=== PATIENT | male | born 1940 | race Caucasian/White ===

== ENCOUNTER → 2016-11-30 | Outpatient (CLI) | payer MEDICARE, BC ==
[2016-12-01 18:07] LABS: ABSOLUTE EOSINOPHILS # (AUTO) 0.8 10^3/uL (0.0-0.6); ABSOLUTE MONOCYTES (AUTO) 0.8 10^3/uL (0.1-1.4); BASOPHILS % (AUTO) 0.4 % (0-2); EOSINOPHILS % (AUTO) 12.1 % (0-6); HEMATOCRIT 34.2 % (37.9-51.0); HEMOGLOBIN 11.7 g/dL (13.5-17.0); HGB HCT DIFFERENCE 0.9; LYMPHOCYTES % (AUTO) 14.5 % (13-45); MEAN CORPUSCULAR HEMOGLOBIN 35.3 pg (27.0-33.4); MEAN CORPUSCULAR HGB CONC 34.2 g/dL (32.0-36.0); MEAN CORPUSCULAR VOLUME 103 fl (80-97); MONOCYTES % (AUTO) 11.8 % (3-13); RED BLOOD COUNT 3.32 10^6/uL (4.35-5.55); RED CELL DISTRIBUTION WIDTH 15.2 % (11.5-14.0); SEGMENTED NEUTROPHILS % (AUTO) 61.2 % (42-78); WHITE BLOOD COUNT 6.6 10^3/uL (4.0-10.5)
[2016-12-01 18:15] LABS: APPEARANCE,URINE CLEAR; BILIRUBIN,URINE NEGATIVE (NEGATIVE); GLUCOSE, URINE NEGATIVE (NEGATIVE); KETONES,URINE NEGATIVE (NEGATIVE); LEUKOCYTE ESTERASE,URINE TRACE (NEGATIVE); NITRITE,URINE NEGATIVE (NEGATIVE); PROTEIN,URINE 30 mg/dL (NEGATIVE); URINE SPECIFIC GRAVITY 1.017; UROBILINOGEN,URINE NEGATIVE mg/dL (<2.0)
[2016-12-01 18:30] LABS: ALANINE AMINOTRANSFERASE 39 U/L (21-72); ALBUMIN 3.7 g/dL (3.5-5.0); ALKALINE PHOSPHATASE 90 U/L (38-126); ANION GAP 10 (5-19); ASPARTATE AMINO TRANSFERASE 46 U/L (17-59); BILIRUBIN,DIRECT 0.4 mg/dL (0.0-0.4); BILIRUBIN,TOTAL 0.4 mg/dL (0.2-1.3); BLOOD UREA NITROGEN 13 mg/dL (7-20); CALCIUM 8.9 mg/dL (8.4-10.2); CARBON DIOXIDE 23 mmol/L (22-30); CHLORIDE 101 mmol/L (98-107); CREATININE RESULT 1.11 mg/dL (0.52-1.25); GLUCOSE 106 mg/dL (75-110); POTASSIUM 4.4 mmol/L (3.6-5.0); SODIUM 134.4 mmol/L (137-145); TOTAL PROTEIN 7.6 g/dL (6.3-8.2)
[2016-12-01 18:38] LABS: URINE CREATININE 114.1 mg/dL (22-328)
[2016-12-01 18:43] LABS: CREATININE 1.11 mg/dL (0.52-1.25)
[2016-12-04 08:40] LABS: COPROPORPHYRIN (CP) I URINE 18 ug/L (Undefined); COPROPORPHYRIN (CP) III URINE 13 ug/L (Undefined); HEPTACARBOXYL (7-CP) URINE 2 ug/L (Undefined); HEXACARBOXYL (6-CP) URINE <1 ug/L (Undefined); PENTACARBOXYL (5-CP) URINE <1 ug/L (Undefined); UROPORPHYRINS (UP) URINE 9 ug/L (Undefined)
== END ==
LOC: OD 17:26
PROVIDERS: ATTEND Physician Assistant
DX: L30.9 Dermatitis, unspecified (principal)
CPT/HCPCS: 36415; 80053; 81001; 82575; 82728; 83540; 84120; 85025; 86038

== ENCOUNTER 2019-02-20 13:15 | Inpatient (IN) | payer MEDICARE, BC ==
--- NOTE | 2019-02-20 13:50 | ER Document Report ---
ED Medical Screen (RME) - General Chief Complaint: Dizziness Stated Complaint: DIZZINESS,VOMITING Time Seen by Provider: 02/20/19 13:47 Primary Care Provider: IVELISSE JOHNSTON PA [Primary Care Provider] - Follow up as needed Mode of Arrival: Wheelchair Information source: Patient Notes: 78-year-old male presented to ED for difficulty breathing. He states he went to the doctor for this difficulty breathing and they did a EKG and when he was getting up to get ready to go home he got extremely dizzy almost fell if it would have if the person there had not caught him. He states he vomited after that they checked his blood pressure and it was low. His blood pressure is 90/60 in the triage area. states he was disoriented after this episode. I have greeted and performed a rapid initial assessment of this patient. A comprehensive ED assessment and evaluation of the patient, analysis of test results and completion of medical decision making process will be conducted by an additional ED providers. TRAVEL OUTSIDE OF THE [place] IN LAST 30 DAYS: No - Related Data Allergies/Adverse Reactions: No Known Allergies Allergy (Verified 09/21/14 10:54) Past Medical History - Past Medical History Cardiac Medical History: Reports: Hx Hypertension Musculoskeltal Medical History: Reports Hx Arthritis - Immunizations Hx Diphtheria, Pertussis, Tetanus Vaccination: Yes Physical Exam - Vital signs Vitals: Temp Pulse Resp BP Pulse Ox 98.2 F 72 16 90/60 L 98 02/20/19 13:33 02/20/19 13:33 02/20/19 13:33 02/20/19 13:33 02/20/19 13:33 Course - Vital Signs Vital signs: Temp Pulse Resp BP Pulse Ox 98.2 F 72 16 90/60 L 98 02/20/19 13:33 02/20/19 13:33 02/20/19 13:33 02/20/19 13:33 02/20/19 13:33 Doctor's Discharge - Discharge Referrals: IVELISSE JOHNSTON PA [Primary Care Provider] - Follow up as needed
[2019-02-20 14:32] LABS: ABSOLUTE EOSINOPHILS # (AUTO) 0.6 10^3/uL (0.0-0.6); ABSOLUTE LYMPHOCYTES (AUTO) 0.5 10^3/uL (0.5-4.7); ABSOLUTE MONOCYTES (AUTO) 0.4 10^3/uL (0.1-1.4); ABSOLUTE NEUT (AUTO) 3.2 10^3/uL (1.7-8.2); BASOPHILS % (AUTO) 0.5 % (0-2); EOSINOPHILS % (AUTO) 12.4 % (0-6); HEMOGLOBIN 9.3 g/dL (13.5-17.0); LYMPHOCYTES % (AUTO) 11.5 % (13-45); MEAN CORPUSCULAR HEMOGLOBIN 35.1 pg (27.0-33.4); MEAN CORPUSCULAR HGB CONC 33.4 g/dL (32.0-36.0); MEAN CORPUSCULAR VOLUME 105 fl (80-97); MONOCYTES % (AUTO) 8.5 % (3-13); PLATELET COUNT 109 10^3/uL (150-450); RED BLOOD COUNT 2.66 10^6/uL (4.35-5.55); SEGMENTED NEUTROPHILS % (AUTO) 67.1 % (42-78); TOTAL CELLS COUNTED % (AUTO) 100 %; WHITE BLOOD COUNT 4.8 10^3/uL (4.0-10.5)
--- NOTE | 2019-02-20 14:46 | RADIOLOGY REPORT (SQ) ---
EXAM DESCRIPTION: CHEST 2 VIEWS COMPLETED DATE/TIME: 02/20/2019 2:35 pm REASON FOR STUDY: syncope COMPARISON: 09/21/2014. EXAM PARAMETERS: NUMBER OF VIEWS: two views TECHNIQUE: Digital Frontal and Lateral radiographic views of the chest acquired. RADIATION DOSE: NA LIMITATIONS: none FINDINGS: LUNGS AND PLEURA: No opacities, masses or pneumothorax. No pleural effusion. MEDIASTINUM AND HILAR STRUCTURES: No masses or contour abnormalities. HEART AND VASCULAR STRUCTURES: Heart normal size. No evidence for failure. BONES: No acute findings. HARDWARE: Hardware in the cervical spine. OTHER: No other significant finding. IMPRESSION: NO ACUTE RADIOGRAPHIC FINDING IN THE CHEST. TECHNICAL DOCUMENTATION: JOB ID: [id number] [employer]- All Rights Reserved Reading location - IP/workstation name: [email or web address]
[2019-02-20 14:54] LABS: ALBUMIN 3.8 g/dL (3.5-5.0); ALKALINE PHOSPHATASE 167 U/L (38-126); ANION GAP 10 (5-19); ASPARTATE AMINO TRANSFERASE 86 U/L (17-59); BILIRUBIN,DIRECT 0.2 mg/dL (0.0-0.4); BILIRUBIN,TOTAL 0.4 mg/dL (0.2-1.3); BLOOD UREA NITROGEN 30 mg/dL (7-20); CALCIUM 9.4 mg/dL (8.4-10.2); CARBON DIOXIDE 22 mmol/L (22-30); CHLORIDE 108 mmol/L (98-107); CREATINE KINASE 110 U/L (55-170); GLUCOSE 118 mg/dL (75-110); POTASSIUM 4.4 mmol/L (3.6-5.0); TOTAL PROTEIN 8.4 g/dL (6.3-8.2)
[2019-02-20 15:06] LABS: CREATINE KINASE MB 1.1 ng/mL (<4.55)
[2019-02-20 15:13] LABS: TROPONIN I 0.045 ng/mL
[2019-02-20 16:45] LABS: APPEARANCE,URINE SLIGHTLY-CLOUDY; BILIRUBIN,URINE NEGATIVE (NEGATIVE); COLOR,URINE AMBER; GLUCOSE, URINE NEGATIVE (NEGATIVE); KETONES,URINE TRACE mg/dL (NEGATIVE); LEUKOCYTE ESTERASE,URINE NEGATIVE (NEGATIVE); NITRITE,URINE NEGATIVE (NEGATIVE); PROTEIN,URINE NEGATIVE (NEGATIVE); UROBILINOGEN,URINE NEGATIVE mg/dL (<2.0)
--- NOTE | 2019-02-20 16:55 | EKG REPORT ---
SEVERITY:- ABNORMAL ECG - PACEMAKER SPIKES OR ARTIFACTS SINUS RHYTHM FIRST DEGREE AV BLOCK : Confirmed by: Myriam Franklin MD 20-Feb-2019 16:54:12
[2019-02-20] MEDS ORDERED: NORMAL SALINE 1000 ML 500 ML IV ONE (17:25)
[2019-02-20] MEDS ORDERED: FAMOTIDINE INJ/PF 20 MG/2 ML SDV IV ONE (17:54)
[2019-02-20] MEDS ORDERED: PANTOPRAZOLE SODIUM 40 MG VIAL IV ONE (17:55)
[2019-02-20] MEDS ORDERED: SUCRALFATE 1 GM TABLET PO ONE (17:56)
[2019-02-20] MEDS ORDERED: PANTOPRAZOLE SODIUM 40 MG VIAL IV PRN (17:56)
[2019-02-20 18:41] LABS: INTERNATIONAL RATION (INR) 1.01; PROTHROMBIN TIME 13.3 SEC (11.4-15.4)
--- NOTE | 2019-02-20 18:42 | ER Document Report ---
ED General - General Chief Complaint: Dizziness Stated Complaint: DIZZINESS,VOMITING Time Seen by Provider: 02/20/19 13:47 Primary Care Provider: IVELISSE JOHNSTON PA [Primary Care Provider] - Follow up as needed Mode of Arrival: Wheelchair Information source: Patient, Relative TRAVEL OUTSIDE OF THE [place] IN LAST 30 DAYS: No - HPI Notes: 78-year-old male presented to ED for difficulty breathing. He states he went to the doctor for this difficulty breathing and they did a EKG and when he was getting up to get ready to go home he got extremely dizzy almost fell if it would have if the person there had not caught him. He states he vomited after that they checked his blood pressure and it was low. His blood pressure is 9 0/60 in the triage area. states he was disoriented after this episode briefly, but quickly was acting like his normal self thereafter. There is no focal unilateral motor or sensory deficit. The patient admits to feeling lightheaded over the course the past week. He does note having somewhat dark- colored bowel movements. Patient denies any chest pain, abdominal pain, fever, constipation, significant diarrhea, bright red blood per rectum, fever, chills. Patient does report urinary frequency with sensation of incomplete voiding. patient is on Flomax. No prior history of GI bleeds. Patient does have a history of gout, hypertension, rheumatoid arthritis and previous neck surgery. Social history non-smoker, rare alcohol use, not to exceed 1 drink per day. Regular practitioner Dr. August with [facility]. Medications include Lexapro, folic acid, Plavix, Flomax, methotrexate, losartan, allopurinol, 2 [place], Singulair, amlodipine, leflunomide - Related Data Allergies/Adverse Reactions: No Known Allergies Allergy (Verified 09/21/14 10:54) Past Medical History - General Information source: Patient - Social History Smoking Status: Never Smoker Frequency of alcohol use: None Drug Abuse: None Lives with: Family Family History: Reviewed & Not Pertinent Patient has suicidal ideation: No Patient has homicidal ideation: No - Past Medical History Cardiac Medical History: Reports: Hx Hypertension Musculoskeletal Medical History: Reports Hx Arthritis - Immunizations Hx Diphtheria, Pertussis, Tetanus Vaccination: Yes Review of Systems - Review of Systems -: Yes All other systems reviewed and negative Physical Exam - Vital signs Vitals: Temp Pulse Resp BP Pulse Ox 98.2 F 72 16 90/60 L 98 02/20/19 13:33 02/20/19 13:33 02/20/19 13:33 02/20/19 13:33 02/20/19 13:33 - Notes Notes: PHYSICAL EXAMINATION: GENERAL: Well-appearing, well-nourished and in no acute distress. HEAD: Atraumatic, normocephalic. EYES: Pupils equal round and reactive to light, extraocular movements intact, sclera anicteric, conjunctiva are normal. ENT: Nares patent, oropharynx clear without exudates. Slightly dry mucous membranes. NECK: Normal range of motion, supple without lymphadenopathy LUNGS: Breath sounds clear to auscultation bilaterally and equal. No wheezes rales or rhonchi. HEART: Regular rate and rhythm with 4/6 holosystolic ejection murmur best auscultated over the apex. ABDOMEN: Soft, nontender, nondistended abdomen. No guarding, no rebound. No masses appreciated. Rectal exam shows flash heme positive with a slightly dark bowel movement specimen. Prostate firm but nontender and without nodularity. Musculoskeletal: Normal range of motion, no pitting or edema. No cyanosis. NEUROLOGICAL: Cranial nerves grossly intact. Normal speech, normal gait. Normal sensory, motor exams. No focal deficits. PSYCH: Normal mood, normal affect. SKIN: Warm, Dry, normal turgor, no rashes or lesions noted. Course - Re-evaluation Re-evalutation: 02/20/19 18:42 Discussion was undertaken with the patient regarding possible transfusion, and the patient was in agreement if he would need one. Initial hemoglobin was 9.3, where is the patient's usual hemoglobin ranges from 11.7-15.3. White blood cell count somewhat low at 4.8 and platelet count was 109. Patient had a BUN of 30 and a creatinine of 1.6, which patient had a prior creatinine of 1.49 in the past but otherwise has more normal creatinine levels. Patient was given IV Pepcid and p.o. Carafate and Protonix bolus with a Protonix drip. Patient was given normal saline 500 cc. Blood pressure initially was 90/60 and a repeat blood pressure was 92/50. After IV fluids, the patient had no further hypotension noted. O2 sat remained stable and chest x-ray was clear. Patient's dyspnea appears secondary to his hypotension from his GI blood loss. Troponin mildly elevated at 0.045, but patient denied ever having any chest pain. Repeat troponin improved at 0.035. 02/20/19 18:52 Discussion was undertaken with the patient and family and they were in agreement with the patient being admitted for further evaluation and care. Discussion was undertaken with Dr. Holbrook who agreed to admit the patient for further care and management. No evidence for urinary retention as a post void residual was only 81. The patient did have mild ketosis with Hyaline casts in his urine consistent with dehydration. The patient states he has been drinking less fluids due to his urinary frequency recently. 02/20/19 19:34 - Vital Signs Vital signs: Temp Pulse Resp BP Pulse Ox 97.8 F 71 18 146/65 H 100 02/20/19 19:05 02/20/19 14:10 02/20/19 19:05 02/20/19 19:05 02/20/19 19:05 - Laboratory Result Diagrams: 02/20/19 14:20 02/20/19 14:20 Laboratory results interpreted by me: 02/20/19 02/20/19 02/20/19 14:20 14:20 14:20 RBC 2.66 L Hgb 9.3 L Hct 28.0 L MCV 105 H MCH 35.1 H RDW 15.0 H Plt Count 109 L Lymph % (Auto) 11.5 L Eos % (Auto) 12.4 H Chloride 108 H BUN 30 H Creatinine 1.60 H Est GFR ( Amer) 51 L Est GFR (MDRD) Non-Af 42 L Glucose 118 H AST 86 H Alkaline Phosphatase 167 H Total Protein 8.4 H Urine Ketones TRACE H Urine Ascorbic Acid 40 H - EKG Interpretation by Me EKG shows normal: Sinus rhythm Additional EKG results interpreted by me: 02/20/19 19:36 EKG is interpreted by id showed sinus rhythm heart rate of 67 with borderline first-degree AV block noted. There is no gross evidence for acute HI or ischemia noted. No old EKG available for comparison. Critical Care Note - Critical Care Note Total time excluding time spent on procedures (mins): 43 Discharge - Discharge Clinical Impression: Thrombocytopenia, Acute anemia, Renal insufficiency, Near syncope, Dehydration GI bleed Qualifiers: GI bleed type/associated pathology: unspecified gastrointestinal hemorrhage type Qualified Code(s): K92.2 - Gastrointestinal hemorrhage, unspecified Hypotension Qualifiers: Hypotension type: hypotension due to hypovolemia Qualified Code(s): I95.89 - Other hypotension Disposition: ADMITTED INPATIENT Admitting Provider: Yusef (Hospitalist) Referrals: IVELISSE JOHNSTON PA [Primary Care Provider] - Follow up as needed
[2019-02-20] MEDS ORDERED: MAG HYDROX/AL HYDROX/SIMETH SUSP 30 ML UDCUP PO PRN (20:14)
[2019-02-20] MEDS ORDERED: MAGNESIUM HYDROXIDE SUSP 30 ML UDCUP PO PRN (20:14)
[2019-02-20] MEDS ORDERED: NALBUPHINE HCL INJ 10 MG/1 ML AMPULE IV PRN (20:21)
[2019-02-20] MEDS ORDERED: ACETAMINOPHEN 650 MG SUPP.RECT PR PRN (20:21)
[2019-02-20] MEDS ORDERED: PROMETHAZINE HCL INJ 25 MG/1 ML VIAL IV PRN (20:24)
[2019-02-20 21:31] LABS: FREE T3 2.82 pg/mL (2.77-5.27); FREE T4 (FREE THYROXINE) 0.85 ng/dL (0.78-2.19)
[2019-02-20 21:45] LABS: THYROID STIMULATING HORMONE 6.03 uIU/mL (0.47-4.68)
[2019-02-20] MEDS: SUCRALFATE 1 GM TABLET PO SCH (22:26)
[2019-02-20] MEDS: PANTOPRAZOLE SODIUM 40 MG VIAL IV SCH (22:26)
[2019-02-20] MEDS: ACETAMINOPHEN 325 MG TABLET PO PRN (23:55)
[2019-02-20] MEDS: RINGERS SOLUTION,LACTATED 1,000 ML IV PRN (23:59)
[2019-02-21 01:30] LABS: CREATINE KINASE MB 1.04 ng/mL (<4.55); TROPONIN I 0.05 ng/mL
--- NOTE | 2019-02-21 03:10 | PDOC H&P ---
History of Present Illness Admission Date/PCP: 02/20/2019 19:37 WINSTON ENGEL Patient complains of: Dyspnea History of Present Illness: MARQUITA GARCIA is a 78 year old male who presented to the emergency room from his primary care provider's office where he had been noted to be hypotensive on an evaluation for a one-week history of dyspnea. Patient admits gradually worsening dyspnea over the last week becoming moderate to severe resulting in his visit to his doctor today. He admits that his dyspnea worsens with any exertion and has been associated with lightheadedness with standing or walking. He also acknowledges the accompanying symptoms of dark-colored bowel movements and decreased oral intake. He denies other associated or accompanying signs and symptoms. He denies prior similar episodes and has not identified any additional aggravating or ameliorating factors for his dyspnea. In the emergency room he was found to have postural hypotension and was noted to have a hemoglobin of 9.3 with a Hemoccult positive stool. His BUN was 30 with a creatinine of 1.6. He was subsequently admitted to the hospital for further evaluation treatment. Past Medical History Cardiac Medical History: Reports: Hypertension Denies: Coronary Artery Disease, Hyperlipidema Pulmonary Medical History: Denies: Asthma, Chronic Obstructive Pulmonary Disease (COPD) EENT Medical History: Reports: Nose - Allergic rhinitis Denies: Cataracts, Ears - Hearing aids Neurological Medical History: Denies: Hemorrhagic CVA, Ischemic CVA, Seizures Endocrine Medical History: Denies: Diabetes Mellitus Type 1, Diabetes Mellitus Type 2, Hyperthyroidism, Hypothyroidism, Obesity Renal/ Medical History: Reports: Other - Benign prostatic hyperplasia Denies: Chronic Kidney Disease, Nephrolithiasis Malignancy Medical History: Reports: None GI Medical History: Denies: Cirrhosis, Crohn's Disease, Gastroesophageal Reflux Disease, Hepatitis, Peptic Ulcer Disease, Ulcerative Colitis Musculoskeltal Medical History: Reports: Arthritis - Rheumatoid arthritis, Gout Skin Medical History: Denies: Eczema, Psoriasis Psychiatric Medical History: Reports: Depression Denies: Alcohol Dependency, Substance Abuse, Tobacco Dependency Traumatic Medical History: Reports: None Hematology: Reports: Anemia Denies: Bleeding Tendencies Infectious Medical History: Reports: None Past Surgical History Past Surgical History: Reports: Orthopedic Surgery - Neck surgery Social History Information Source: Patient Lives with: Spouse/Significant other Smoking Status: Never Smoker Electronic Cigarette use?: No Frequency of Alcohol Use: Rare Hx Recreational Drug Use: No Drugs: None Hx Prescription Drug Abuse: No - Advance Directive Resuscitation Status: Full Code Surrogate healthcare decision maker:: Jen Garcia Family History Family History: Arthritis, CAD, DM, Hypertension, Malignancy, Other - Peripheral vascular disease Parental Family History Reviewed: Yes Children Family History Reviewed: No Sibling(s) Family History Reviewed.: Yes Medication/Allergy Home Medications: Allopurinol [Zyloprim 300 mg Tablet] 300 mg PO DAILY 02/20/19 Amlodipine Besylate [Norvasc 5 mg Tablet] 5 mg PO DAILY 02/20/19 Azelastine HCl 1 spray NS BID 02/20/19 Clopidogrel Bisulfate [Plavix 75 mg Tablet] 75 mg PO DAILY 02/20/19 Escitalopram Oxalate [Lexapro 10 mg Tablet] 10 mg PO DAILY 02/20/19 Folic Acid [Folvite 1 mg Tablet] 1 mg PO DAILY 02/20/19 Leflunomide [Arava 20 mg Tablet] 20 mg PO DAILY 02/20/19 Losartan Potassium [Cozaar 50 mg Tablet] 50 mg PO DAILY 02/20/19 Methotrexate Sodium [Rheumatrex 2.5 mg Tablet] 5 mg PO FR@1000 02/20/19 Montelukast Sodium [Singulair 10 mg Tablet] 10 mg PO QPM 02/20/19 Multivitamin [One-A-Day Essential] 1 each PO DAILY 02/20/19 Tamsulosin HCl [Flomax] 0.4 mg PO BID 02/20/19 Turmeric Root Extract [Turmeric Curcumin] 500 mg PO DAILY 02/20/19 Allergies/Adverse Reactions: No Known Allergies Allergy (Verified 09/21/14 10:54) Review of Systems Constitutional: PRESENT: as per HPI, anorexia, other - Lightheadedness with standing. ABSENT: chills, fever(s) Eyes: ABSENT: visual disturbances, other - Eye pain Ears: ABSENT: hearing changes, other - Ear pain Nose, Mouth, and Throat: ABSENT: mouth pain, sore throat Cardiovascular: PRESENT: dyspnea on exertion. ABSENT: chest pain, palpitations Respiratory: PRESENT: dyspnea. ABSENT: cough Gastrointestinal: PRESENT: as per HPI, melena. ABSENT: abdominal pain, constipation, diarrhea, hematochezia, nausea, vomiting Genitourinary: ABSENT: dysuria, hematuria Musculoskeletal: ABSENT: joint swelling, muscle weakness Integumentary: ABSENT: pruritus, rash Neurological: PRESENT: as per HPI, other - Lightheadedness with standing or activity. ABSENT: confusion, convulsions, focal weakness, memory loss, syncope Psychiatric: ABSENT: anxiety, depression Endocrine: ABSENT: cold intolerance, heat intolerance Hematologic/Lymphatic: ABSENT: easy bleeding, easy bruising Allergic/Immunologic: PRESENT: seasonal rhinorrhea Physical Exam Vital Signs: Temp Pulse Resp BP Pulse Ox 97.8 F 71 18 146/65 H 100 02/20/19 19:05 02/20/19 14:10 02/20/19 19:05 02/20/19 19:05 02/20/19 19:05 Intake & Output 02/18/19 02/19/19 02/20/19 23:59 23:59 23:59 Intake Total 500 Balance 500 Weight 75.3 kg General appearance: PRESENT: no acute distress, cooperative Head exam: PRESENT: atraumatic, normocephalic Eye exam: PRESENT: conjunctiva pink. ABSENT: conjunctival injection, scleral icterus Ear exam: PRESENT: normal external ear exam. ABSENT: bleeding, drainage Mouth exam: PRESENT: dry mucosa, neck supple Neck exam: ABSENT: thyromegaly, tracheal deviation Respiratory exam: PRESENT: clear to auscultation yimi, symmetrical, unlabored Cardiovascular exam: PRESENT: RRR. ABSENT: clicks, gallop, rubs Pulses: PRESENT: normal radial pulses, normal dorsalis pedis pul Vascular exam: PRESENT: normal capillary refill. ABSENT: pallor GI/Abdominal exam: PRESENT: normal bowel sounds, soft. ABSENT: tenderness Rectal exam: PRESENT: deferred Extremities exam: ABSENT: joint swelling, pedal edema Musculoskeletal exam: ABSENT: deformity, dislocation Neurological exam: PRESENT: alert, oriented to person, oriented to place, oriented to time, oriented to situation, CN II-XII grossly intact. ABSENT: motor sensory deficit Psychiatric exam: PRESENT: appropriate affect, normal mood Skin exam: PRESENT: dry, intact, warm. ABSENT: jaundice, rash, urticaria Results Laboratory Results: 02/20/19 14:20 02/20/19 14:20 02/20/19 02/20/19 02/20/19 14:20 14:20 14:20 WBC 4.8 RBC 2.66 L Hgb 9.3 L Hct 28.0 L MCV 105 H MCH 35.1 H MCHC 33.4 RDW 15.0 H Plt Count 109 L Seg Neutrophils % 67.1 Sodium 140.3 Potassium 4.4 Chloride 108 H Carbon Dioxide 22 Anion Gap 10 BUN 30 H Creatinine 1.60 H Est GFR ( Amer) 51 L Glucose 118 H Calcium 9.4 Total Bilirubin 0.4 AST 86 H Alkaline Phosphatase 167 H Total Protein 8.4 H Albumin 3.8 Urine Color TRACIE Urine Appearance SLIGHTLY-CLOUDY Urine pH 5.0 Ur Specific Hart 1.020 Urine Protein NEGATIVE Urine Glucose (UA) NEGATIVE Urine Ketones TRACE H Urine Blood NEGATIVE Urine Nitrite NEGATIVE Ur Leukocyte Esterase NEGATIVE Urine WBC (Auto) 3 Urine RBC (Auto) 1 Blood Type Antibody Screen 02/20/19 18:20 WBC RBC Hgb Hct MCV MCH MCHC RDW Plt Count Seg Neutrophils % Sodium Potassium Chloride Carbon Dioxide Anion Gap BUN Creatinine Est GFR ( Amer) Glucose Calcium Total Bilirubin AST Alkaline Phosphatase Total Protein Albumin Urine Color Urine Appearance Urine pH Ur Specific Hart Urine Protein Urine Glucose (UA) Urine Ketones Urine Blood Urine Nitrite Ur Leukocyte Esterase Urine WBC (Auto) Urine RBC (Auto) Blood Type Cancelled Antibody Screen Cancelled 02/20/19 02/20/19 02/20/19 14:20 14:20 18:20 Creatine Kinase 110 CK-MB (CK-2) 1.10 Troponin I 0.045 0.035 Impressions: Chest X-Ray 02/20/19 13:51 IMPRESSION: NO ACUTE RADIOGRAPHIC FINDING IN THE CHEST. Assessment and Plan - Diagnosis (1) Upper gastrointestinal bleed Is this a current diagnosis for this admission?: Yes Plan: Patient will be admitted to [facility] and serial CBCs will be performed to evaluate his bleeding. A surgical consultation will be obtained for evaluation of his gastrointestinal hemorrhage. Transfusion will be provided if appropriate. Patient will be maintained on IV fluids and will receive Protonix 40 mg IV every 12 hours. He will be on a clear liquid diet and his vital signs including orthostatic vital signs will be monitored closely. (2) Postural hypotension Is this a current diagnosis for this admission?: Yes Plan: Patient will be treated with IV fluid resuscitation and careful and frequent monitoring of his vital signs. Falls precautions will be in place. (3) Acute kidney injury (nontraumatic) Is this a current diagnosis for this admission?: Yes Plan: Patient will be treated with IV fluids and his renal functions be monitored on a regular basis with metabolic profiles. (4) Anemia due to acute blood loss Is this a current diagnosis for this admission?: Yes Plan: Patient's hemoglobin will be monitored with serial CBCs and transfusion will be provided if required. (5) Thrombocytopenia Is this a current diagnosis for this admission?: Yes Plan: Patient's platelet count will be monitored with serial CBCs with intervention provided as required. (6) Rheumatoid arthritis Qualifiers: Rheumatoid arthritis location: unspecified site Rheumatoid factor presence: unspecified presence Qualified Code(s): M06.9 - Rheumatoid arthritis, unspecified Is this a current diagnosis for this admission?: Yes Plan: Patient's current therapeutic agents will be held until after resolution of his gastrointestinal hemorrhage. He will have available Nubain 5 to 10 mg IV every 3 hours on a as needed basis for pain control due to his rheumatoid arthritis. (7) Benign prostatic hyperplasia Qualifiers: Lower urinary tract symptom presence: unspecified whether lower urinary tract symptoms present Qualified Code(s): N40.0 - Benign prostatic hyperplasia without lower urinary tract symptoms Is this a current diagnosis for this admission?: Yes Plan: Patient will be continued on his usual therapeutic regiment using Flomax. His urine output will be monitored closely and intervention will be provided if needed. - Time Time Spent with patient: 25-34 minutes Medications reviewed and adjusted accordingly: Yes Anticipated discharge: Home - Inpatient Certification Based on my medical assessment, after consideration of the patient's citlalli rbidities, presenting symptoms, or acuity I expect that the services needed warrant INPATIENT care.: Yes I certify that my determination is in accordance with my understanding of Medicare's requirements for reasonable and necessary INPATIENT services [42 CFR 412.3e].: Yes Medical Necessity: Significant Comorbidiites Make Outpatient Treatment Too Risky, Need Close Monitoring Due to Risk of Patient Decompensation, Need For IV Fluids, Need For Continuous Telemetry Monitoring, Need for Surgery, Risk of Complication if Not Cared For in Hospital
[2019-02-21] MEDS: RINGERS SOLUTION,LACTATED 1,000 ML IV PRN ×3 (05:43→18:13)
[2019-02-21 06:54] LABS: HEMATOCRIT 20.9 % (37.9-51.0); MEAN CORPUSCULAR HEMOGLOBIN 35.4 pg (27.0-33.4); MEAN CORPUSCULAR VOLUME 104 fl (80-97); RED BLOOD COUNT 2.01 10^6/uL (4.35-5.55)
[2019-02-21 07:04] LABS: BLOOD UREA NITROGEN 23 mg/dL (7-20); CALCIUM 8.3 mg/dL (8.4-10.2); CARBON DIOXIDE 23 mmol/L (22-30); CHLORIDE 109 mmol/L (98-107); GLUCOSE 94 mg/dL (75-110); INTERNATIONAL RATION (INR) 1.08; POTASSIUM 4.1 mmol/L (3.6-5.0)
[2019-02-21 07:05] LABS: PARTIAL THROMBOPLASTIN TIME 30.7 SEC (23.5-35.8)
[2019-02-21 07:14] LABS: CREATINE KINASE MB 1.05 ng/mL (<4.55); TROPONIN I 0.047 ng/mL
[2019-02-21 07:18] LABS: ANION GAP 6 (5-19)
[2019-02-21 07:21] LABS: PLATELET COUNT 82 10^3/uL (150-450); WHITE BLOOD COUNT 2.7 10^3/uL (4.0-10.5)
[2019-02-21 07:24] LABS: HEMOGLOBIN 7.1 g/dL (13.5-17.0)
[2019-02-21] MEDS ORDERED: INFLUENZA QUAD (6MOS+) 2019-20 VAC 0.5 ML SYR IM ONE (08:00)
[2019-02-21] MEDS: SUCRALFATE 1 GM TABLET PO SCH ×4 (08:44→21:06)
[2019-02-21] MEDS: DOCUSATE SODIUM 100 MG/10 ML UDC PO SCH ×2 (09:26→17:45)
[2019-02-21] MEDS: ESCITALOPRAM OXALATE 10 MG TABLET PO SCH (09:27)
[2019-02-21] MEDS: TAMSULOSIN HCL 0.4 MG CAP.SR.24H PO SCH ×2 (09:27→17:45)
[2019-02-21] MEDS: PANTOPRAZOLE SODIUM 40 MG VIAL IV SCH ×2 (09:27→21:06)
[2019-02-21] MEDS: ALLOPURINOL 300 MG TABLET PO SCH (09:27)
[2019-02-21] MEDS: MULTIVITAMIN TABLET PO SCH (09:27)
[2019-02-21] MEDS: FOLIC ACID 1 MG TABLET PO SCH (09:27)
[2019-02-21 13:33] LABS: CREATINE KINASE MB 1.43 ng/mL (<4.55); TROPONIN I 0.038 ng/mL
--- NOTE | 2019-02-21 16:29 | PDOC PROGRESS REPORT ---
Subjective Progress Note for:: 02/21/19 Subjective:: This is a 78-year-old male who presented with a few week history of melanotic stools, lightheadedness and shortness of breath. He was found to be anemic and was found to have a positive FOBT. He was admitted for likely upper GI bleed. This morning, patient appears comfortable. He denies abdominal pain. He does report that he takes a lot of Aleve at home for his joint pains. Hemoglobin dropped down to 7.1. Will order 2 units of packed RBC. Surgical has been consulted for EGD. Reason For Visit: ACUTE UPPER GI BLEEDING,POSTURAL HYPOTENSION, Physical Exam Vital Signs: Temp Pulse Resp BP Pulse Ox 97.3 F 63 18 154/62 H 98 02/21/19 15:48 02/21/19 15:48 02/21/19 15:48 02/21/19 15:48 02/21/19 15:48 Intake & Output 02/20/19 02/21/19 02/22/19 06:59 06:59 06:59 Intake Total 1457 1449 Output Total 375 Balance 1082 1449 Weight 168 lb 3.403 oz 168 lb 3.403 oz General appearance: PRESENT: no acute distress, well-developed, well-nourished Head exam: PRESENT: atraumatic, normocephalic Eye exam: PRESENT: conjunctiva pale, EOMI, PERRLA. ABSENT: scleral icterus Ear exam: PRESENT: normal external ear exam Mouth exam: PRESENT: moist, tongue midline Neck exam: ABSENT: carotid bruit, JVD, lymphadenopathy, thyromegaly Respiratory exam: PRESENT: clear to auscultation yimi. ABSENT: rales, rhonchi, wheezes Cardiovascular exam: PRESENT: RRR. ABSENT: diastolic murmur, rubs, systolic murmur Pulses: PRESENT: normal dorsalis pedis pul GI/Abdominal exam: PRESENT: normal bowel sounds, soft. ABSENT: distended, guarding, mass, organolmegaly, rebound, tenderness Rectal exam: PRESENT: deferred Extremities exam: PRESENT: full ROM. ABSENT: calf tenderness, clubbing, pedal edema Neurological exam: PRESENT: alert, awake, oriented to person, oriented to place, oriented to time, oriented to situation, CN II-XII grossly intact. ABSENT: motor sensory deficit Results Laboratory Results: 02/21/19 06:15 02/21/19 06:15 02/20/19 02/20/19 02/20/19 14:20 14:20 18:20 WBC RBC Hgb Hct MCV MCH MCHC RDW Plt Count Sodium Potassium Chloride Carbon Dioxide Anion Gap BUN Creatinine Est GFR ( Amer) Glucose Calcium Magnesium TSH 6.03 H Free T4 0.85 Free T3 pg/mL 2.82 Urine Color TRACIE Urine Appearance SLIGHTLY-CLOUDY Urine pH 5.0 Ur Specific [place] 1.020 Urine Protein NEGATIVE Urine Glucose (UA) NEGATIVE Urine Ketones TRACE H Urine Blood NEGATIVE Urine Nitrite NEGATIVE Ur Leukocyte Esterase NEGATIVE Urine WBC (Auto) 3 Urine RBC (Auto) 1 Blood Type Cancelled Antibody Screen Cancelled 02/20/19 02/21/19 02/21/19 19:04 06:15 06:15 WBC 2.7 L D RBC 2.01 L Hgb 7.1 L D Hct 20.9 L MCV 104 H MCH 35.4 H MCHC 34.0 RDW 15.0 H Plt Count 82 L Sodium 137.7 Potassium 4.1 Chloride 109 H Carbon Dioxide 23 Anion Gap 6 BUN 23 H Creatinine 1.31 H Est GFR ( Amer) > 60 Glucose 94 Calcium 8.3 L Magnesium 1.9 TSH Free T4 Free T3 pg/mL Urine Color Urine Appearance Urine pH Ur Specific [place] Urine Protein Urine Glucose (UA) Urine Ketones Urine Blood Urine Nitrite Ur Leukocyte Esterase Urine WBC (Auto) Urine RBC (Auto) Blood Type A POSITIVE Antibody Screen NEGATIVE 02/20/19 02/20/19 02/20/19 14:20 14:20 18:20 Creatine Kinase 110 CK-MB (CK-2) 1.10 Troponin I 0.045 0.035 02/20/19 02/20/19 02/21/19 18:20 18:20 00:39 Creatine Kinase 98 CK-MB (CK-2) 0.88 1.04 Troponin I Cancelled 0.050 02/21/19 02/21/19 02/21/19 00:39 06:15 06:15 Creatine Kinase 98 108 CK-MB (CK-2) 1.05 Troponin I 0.047 02/21/19 02/21/19 12:46 12:46 Creatine Kinase 126 CK-MB (CK-2) 1.43 Troponin I 0.038 Impressions: Chest X-Ray 02/20/19 13:51 IMPRESSION: NO ACUTE RADIOGRAPHIC FINDING IN THE CHEST. Assessment and Plan - Diagnosis (1) Upper gastrointestinal bleed Is this a current diagnosis for this admission?: Yes Plan: Hemoglobin dropped down to 7.1. Will order 2 units of packed RBC. Surgical has been consulted for EGD. Continue IV Protonix. (2) Anemia due to acute blood loss Is this a current diagnosis for this admission?: Yes Plan: As per #1. (3) Acute kidney injury (nontraumatic) Is this a current diagnosis for this admission?: Yes Plan: Creatinine has improved down to 1.3 from 1.6. Likely a combination of prerenal and ATN from hypotension. continue IV fluids. - Time Time Spent with patient: 25-34 minutes
--- NOTE | 2019-02-21 16:50 | PDOC CONSULTATION ---
Consultation Consult Date: 02/21/19 Provider Consulted: JUAN TRIANA Consult reason:: Upper endoscopy History of Present Illness Admission Date/PCP: 02/20/19 20:18 WINSTON ENGEL History of Present Illness: MARQUITA ALEXIS is a 78 year old male who has been taking Aleve about 2 tabs every other day for the past years for back pains and joint pains attributed to osteoarthritis. He he has been noticing dark stools for the past week. While at the doctor's office the other day patient almost passed out and then subsequently brought to ED were hemoglobin was noted to be 9.3. He was also on Plavix supposedly for cardiac reasons and this apparently was stopped about 2 days ago. Today repeat hemoglobin was 7.1 and being transfused packed red blood cells. He denies any abdominal pains or nausea or vomiting. He denies any bright red stools. Denies any history of gastric or duodenal ulcers in the past. Past Medical History Cardiac Medical History: Reports: Hypertension Denies: Coronary Artery Disease, Hyperlipidema Pulmonary Medical History: Denies: Asthma, Chronic Obstructive Pulmonary Disease (COPD) EENT Medical History: Reports: Nose - Allergic rhinitis Denies: Cataracts, Ears - Hearing aids Neurological Medical History: Denies: Hemorrhagic CVA, Ischemic CVA, Seizures Endocrine Medical History: Denies: Diabetes Mellitus Type 1, Diabetes Mellitus Type 2, Hyperthyroidism, Hypothyroidism, Obesity Renal/ Medical History: Reports: Other - Benign prostatic hyperplasia Denies: Chronic Kidney Disease, Nephrolithiasis Malignancy Medical History: Reports: None GI Medical History: Denies: Cirrhosis, Crohn's Disease, Gastroesophageal Reflux Disease, Hepatitis, Peptic Ulcer Disease, Ulcerative Colitis Musculoskeltal Medical History: Reports: Arthritis - Rheumatoid arthritis, Gout Skin Medical History: Denies: Eczema, Psoriasis Psychiatric Medical History: Reports: Depression Denies: Alcohol Dependency, Substance Abuse, Tobacco Dependency Traumatic Medical History: Reports: None Hematology: Reports: Anemia Denies: Bleeding Tendencies Infectious Medical History: Reports: None Past Surgical History Past Surgical History: Reports: Orthopedic Surgery - Neck surgery Social History Lives with: Spouse/Significant other Smoking Status: Never Smoker Electronic Cigarette use?: No Frequency of Alcohol Use: Rare Hx Recreational Drug Use: No Drugs: None Hx Prescription Drug Abuse: No - Advance Directive Resuscitation Status: Full Code Family History Family History: Arthritis, CAD, DM, Hypertension, Malignancy, Other - Peripheral vascular disease Parental Family History Reviewed: Yes Children Family History Reviewed: No Sibling(s) Family History Reviewed.: No Medication/Allergy Home Medications: Allopurinol [Zyloprim 300 mg Tablet] 300 mg PO DAILY 02/20/19 Amlodipine Besylate [Norvasc 5 mg Tablet] 5 mg PO DAILY 02/20/19 Azelastine HCl 1 spray NS BID 02/20/19 Clopidogrel Bisulfate [Plavix 75 mg Tablet] 75 mg PO DAILY 02/20/19 Escitalopram Oxalate [Lexapro 10 mg Tablet] 10 mg PO DAILY 02/20/19 Folic Acid [Folvite 1 mg Tablet] 1 mg PO DAILY 02/20/19 Leflunomide [Arava 20 mg Tablet] 20 mg PO DAILY 02/20/19 Losartan Potassium [Cozaar 50 mg Tablet] 50 mg PO DAILY 02/20/19 Methotrexate Sodium [Rheumatrex 2.5 mg Tablet] 5 mg PO FR@1000 02/20/19 Montelukast Sodium [Singulair 10 mg Tablet] 10 mg PO QPM 02/20/19 Multivitamin [One-A-Day Essential] 1 each PO DAILY 02/20/19 Tamsulosin HCl [Flomax] 0.4 mg PO BID 02/20/19 Turmeric Root Extract [Turmeric Curcumin] 500 mg PO DAILY 02/20/19 Allergies/Adverse Reactions: No Known Allergies Allergy (Verified 09/21/14 10:54) Review of Systems Constitutional: PRESENT: other - Denies fever no chills Gastrointestinal: PRESENT: as per HPI Physical Exam Vital Signs: Temp Pulse Resp BP Pulse Ox 97.3 F 63 18 154/62 H 98 02/21/19 15:48 02/21/19 15:48 02/21/19 15:48 02/21/19 15:48 02/21/19 15:48 Intake & Output 02/20/19 02/21/19 02/22/19 06:59 06:59 06:59 Intake Total 1457 1449 Output Total 375 Balance 1082 1449 Weight 76.3 kg 76.3 kg General appearance: PRESENT: no acute distress Eye exam: PRESENT: conjunctiva pale Mouth exam: PRESENT: moist Neck exam: PRESENT: full ROM Respiratory exam: PRESENT: clear to auscultation yimi Cardiovascular exam: PRESENT: RRR Pulses: PRESENT: normal radial pulses Vascular exam: PRESENT: normal capillary refill GI/Abdominal exam: PRESENT: soft - Nontender Rectal exam: PRESENT: deferred Neurological exam: PRESENT: alert, oriented to person, oriented to place, oriented to time, oriented to situation Psychiatric exam: PRESENT: appropriate affect Skin exam: PRESENT: normal color, warm Results Laboratory Results: 02/21/19 06:15 02/21/19 06:15 02/20/19 02/20/19 02/20/19 14:20 14:20 18:20 WBC RBC Hgb Hct MCV MCH MCHC RDW Plt Count Sodium Potassium Chloride Carbon Dioxide Anion Gap BUN Creatinine Est GFR ( Amer) Glucose Calcium Magnesium TSH 6.03 H Free T4 0.85 Free T3 pg/mL 2.82 Urine Color TRACIE Urine Appearance SLIGHTLY-CLOUDY Urine pH 5.0 Ur Specific [place] 1.020 Urine Protein NEGATIVE Urine Glucose (UA) NEGATIVE Urine Ketones TRACE H Urine Blood NEGATIVE Urine Nitrite NEGATIVE Ur Leukocyte Esterase NEGATIVE Urine WBC (Auto) 3 Urine RBC (Auto) 1 Blood Type Cancelled Antibody Screen Cancelled 02/20/19 02/21/19 02/21/19 19:04 06:15 06:15 WBC 2.7 L D RBC 2.01 L Hgb 7.1 L D Hct 20.9 L MCV 104 H MCH 35.4 H MCHC 34.0 RDW 15.0 H Plt Count 82 L Sodium 137.7 Potassium 4.1 Chloride 109 H Carbon Dioxide 23 Anion Gap 6 BUN 23 H Creatinine 1.31 H Est GFR ( Amer) > 60 Glucose 94 Calcium 8.3 L Magnesium 1.9 TSH Free T4 Free T3 pg/mL Urine Color Urine Appearance Urine pH Ur Specific [place] Urine Protein Urine Glucose (UA) Urine Ketones Urine Blood Urine Nitrite Ur Leukocyte Esterase Urine WBC (Auto) Urine RBC (Auto) Blood Type A POSITIVE Antibody Screen NEGATIVE 02/20/19 02/20/19 02/20/19 14:20 14:20 18:20 Creatine Kinase 110 CK-MB (CK-2) 1.10 Troponin I 0.045 0.035 02/20/19 02/20/19 02/21/19 18:20 18:20 00:39 Creatine Kinase 98 CK-MB (CK-2) 0.88 1.04 Troponin I Cancelled 0.050 02/21/19 02/21/19 02/21/19 00:39 06:15 06:15 Creatine Kinase 98 108 CK-MB (CK-2) 1.05 Troponin I 0.047 02/21/19 02/21/19 12:46 12:46 Creatine Kinase 126 CK-MB (CK-2) 1.43 Troponin I 0.038 Impressions: Chest X-Ray 02/20/19 13:51 IMPRESSION: NO ACUTE RADIOGRAPHIC FINDING IN THE CHEST. Assessment & Plan - Diagnosis (1) Anemia due to acute blood loss Is this a current diagnosis for this admission?: Yes (2) Postural hypotension Is this a current diagnosis for this admission?: Yes (3) Upper gastrointestinal bleed Is this a current diagnosis for this admission?: Yes - Time Time Spent: 30 to 50 Minutes - Inpatient Certification Medical Necessity: Need Close Monitoring Due to Risk of Patient Decompensation, Need For IV Fluids - Plan Summary Plan Summary: Hold Aleve and Plavix Keep n.p.o. from midnight For possible EGD tomorrow. I'll ask to do the EGD
[2019-02-21] MEDS: MONTELUKAST SODIUM 10 MG TABLET PO SCH (17:45)
[2019-02-21 18:58] LABS: ABSOLUTE EOSINOPHILS # (AUTO) 0.6 10^3/uL (0.0-0.6); ABSOLUTE LYMPHOCYTES (AUTO) 0.6 10^3/uL (0.5-4.7); ABSOLUTE MONOCYTES (AUTO) 0.3 10^3/uL (0.1-1.4); ABSOLUTE NEUT (AUTO) 1.5 10^3/uL (1.7-8.2); BASOPHILS % (AUTO) 0.5 % (0-2); EOSINOPHILS % (AUTO) 19.6 % (0-6); HEMATOCRIT 27.8 % (37.9-51.0); LYMPHOCYTES % (AUTO) 20.1 % (13-45); MEAN CORPUSCULAR HEMOGLOBIN 33.2 pg (27.0-33.4); MEAN CORPUSCULAR HGB CONC 34.3 g/dL (32.0-36.0); MONOCYTES % (AUTO) 10.8 % (3-13); RED BLOOD COUNT 2.88 10^6/uL (4.35-5.55); RED CELL DISTRIBUTION WIDTH 18.7 % (11.5-14.0); TOTAL CELLS COUNTED % (AUTO) 100 %; WHITE BLOOD COUNT 3.1 10^3/uL (4.0-10.5)
[2019-02-21 19:25] LABS: HEMOGLOBIN 9.5 g/dL (13.5-17.0); MEAN CORPUSCULAR VOLUME 97 fl (80-97); PLATELET COUNT 74 10^3/uL (150-450)
[2019-02-22] MEDS: RINGERS SOLUTION,LACTATED 1,000 ML IV PRN (01:09)
[2019-02-22 07:08] LABS: HEMATOCRIT 27.9 % (37.9-51.0); HEMOGLOBIN 9.7 g/dL (13.5-17.0); MEAN CORPUSCULAR HEMOGLOBIN 33.4 pg (27.0-33.4); MEAN CORPUSCULAR HGB CONC 34.6 g/dL (32.0-36.0); MEAN CORPUSCULAR VOLUME 97 fl (80-97); RED BLOOD COUNT 2.89 10^6/uL (4.35-5.55); RED CELL DISTRIBUTION WIDTH 18.9 % (11.5-14.0); WHITE BLOOD COUNT 3.3 10^3/uL (4.0-10.5)
[2019-02-22 07:52] LABS: PLATELET COUNT 73 10^3/uL (150-450)
[2019-02-22] MEDS: SUCRALFATE 1 GM TABLET PO SCH ×4 (12:03→21:56)
[2019-02-22] MEDS: DOCUSATE SODIUM 100 MG/10 ML UDC PO SCH ×2 (12:03→18:33)
[2019-02-22] MEDS: ALLOPURINOL 300 MG TABLET PO SCH (12:07)
[2019-02-22] MEDS: TAMSULOSIN HCL 0.4 MG CAP.SR.24H PO SCH ×2 (12:07→18:33)
[2019-02-22] MEDS: PANTOPRAZOLE SODIUM 40 MG VIAL IV SCH ×2 (12:07→21:57)
[2019-02-22] MEDS: ESCITALOPRAM OXALATE 10 MG TABLET PO SCH (12:07)
[2019-02-22] MEDS: MULTIVITAMIN TABLET PO SCH (12:07)
[2019-02-22] MEDS: FOLIC ACID 1 MG TABLET PO SCH (12:07)
[2019-02-22] MEDS ORDERED: BISACODYL 5 MG TABEC PO ONE ×3 (13:00→18:37)
[2019-02-22] MEDS ORDERED: POLYETHYLENE GLYCOL 3350 POWDER 17 GM/1 PACKET PO ONE (13:30)
[2019-02-22] MEDS ORDERED: POLYETHYLENE GLYCOL 3350 POWDER 17 GM/1 PACKET ONE ×2 (15:44→15:46)
--- NOTE | 2019-02-22 16:20 | PDOC PROGRESS REPORT ---
Subjective Progress Note for:: 02/22/19 Subjective:: This is a 78-year-old male who presented with a few week history of melanotic stools, lightheadedness and shortness of breath. He was found to be anemic and was found to have a positive FOBT. He was admitted for likely upper GI bleed. 02/21: This morning, patient appears comfortable. He denies abdominal pain. He does report that he takes a lot of Aleve at home for his joint pains. Hemoglobin dropped down to 7.1. Will order 2 units of packed RBC. Surgical has been consulted for EGD. 02/22: Patient reports he had an episode of black tarry stool overnight. He also complained of urinary frequency last night. Denies chest pain, shortness of breath or dizziness. Hemoglobin has improved and remained stable after transfusion. He is scheduled for an EGD and colonoscopy tomorrow by surgery. Reason For Visit: ACUTE UPPER GI BLEEDING,POSTURAL HYPOTENSION, Physical Exam Vital Signs: Temp Pulse Resp BP Pulse Ox 97.7 F 66 18 173/72 H 96 02/22/19 08:12 02/22/19 08:12 02/22/19 08:12 02/22/19 08:12 02/22/19 08:12 Intake & Output 02/21/19 02/22/19 02/23/19 06:59 06:59 06:59 Intake Total 1457 5199 360 Output Total 375 700 Balance 1082 4499 360 Weight 168 lb 3.403 oz 167 lb 15.876 oz General appearance: PRESENT: no acute distress, well-developed, well-nourished Head exam: PRESENT: atraumatic, normocephalic Eye exam: PRESENT: conjunctiva pink, EOMI, PERRLA. ABSENT: scleral icterus Ear exam: PRESENT: normal external ear exam Mouth exam: PRESENT: moist, tongue midline Neck exam: ABSENT: carotid bruit, JVD, lymphadenopathy, thyromegaly Respiratory exam: PRESENT: clear to auscultation yimi. ABSENT: rales, rhonchi, wheezes Cardiovascular exam: PRESENT: RRR. ABSENT: rubs Pulses: PRESENT: normal dorsalis pedis pul GI/Abdominal exam: PRESENT: normal bowel sounds, soft. ABSENT: distended, guarding, mass, organolmegaly, rebound, tenderness Rectal exam: PRESENT: deferred Neurological exam: PRESENT: alert, awake, oriented to person, oriented to place, oriented to time, oriented to situation, CN II-XII grossly intact. ABSENT: motor sensory deficit Results Laboratory Results: 02/22/19 06:23 02/21/19 06:15 02/21/19 02/22/19 18:45 06:23 WBC 3.1 L 3.3 L RBC 2.88 L 2.89 L Hgb 9.5 L D 9.7 L Hct 27.8 L 27.9 L MCV 97 D 97 MCH 33.2 33.4 MCHC 34.3 34.6 RDW 18.7 H 18.9 H Plt Count 74 L 73 L Seg Neutrophils % 49.0 02/20/19 02/20/19 02/20/19 14:20 14:20 18:20 Creatine Kinase 110 CK-MB (CK-2) 1.10 Troponin I 0.045 0.035 02/20/19 02/20/19 02/21/19 18:20 18:20 00:39 Creatine Kinase 98 CK-MB (CK-2) 0.88 1.04 Troponin I Cancelled 0.050 02/21/19 02/21/19 02/21/19 00:39 06:15 06:15 Creatine Kinase 98 108 CK-MB (CK-2) 1.05 Troponin I 0.047 02/21/19 02/21/19 12:46 12:46 Creatine Kinase 126 CK-MB (CK-2) 1.43 Troponin I 0.038 Impressions: Chest X-Ray 02/20/19 13:51 IMPRESSION: NO ACUTE RADIOGRAPHIC FINDING IN THE CHEST. Assessment and Plan - Diagnosis (1) Upper gastrointestinal bleed Is this a current diagnosis for this admission?: Yes Plan: 02/21: Hemoglobin dropped down to 7.1. Will order 2 units of packed RBC. Surgical has been consulted for EGD. Continue IV Protonix. 02/22: Hemoglobin has trended up and stabilized at 9.7. Surgery has scheduled patient for EGD: This could be tomorrow. (2) Anemia due to acute blood loss Is this a current diagnosis for this admission?: Yes Plan: As per #1. (3) Acute kidney injury (nontraumatic) Is this a current diagnosis for this admission?: Yes Plan: Improving with IV fluids. Likely a combination of prerenal and ATN from hypotension.
[2019-02-22] MEDS ORDERED: BISACODYL 5 MG TABEC PO SCH (18:00)
[2019-02-22] MEDS: MONTELUKAST SODIUM 10 MG TABLET PO SCH (18:33)
--- NOTE | 2019-02-22 19:28 | PDOC PROGRESS REPORT ---
Subjective Progress Note for:: 02/22/19 Subjective:: This is a 78-year-old male with symptomatic anemia and melena. The patient's last colonoscopy was in the . He reports orthostasis, fatigue, and malaise. He denies chest pain, shortness of breath, fevers, chills, nausea, or vomiting. He has recently had a melanotic stool. He denies abdominal pain Reason For Visit: ACUTE UPPER GI BLEEDING,POSTURAL HYPOTENSION, Physical Exam Vital Signs: Temp Pulse Resp BP Pulse Ox 97.7 F 63 18 173/72 H 96 02/22/19 08:12 02/22/19 14:00 02/22/19 08:12 02/22/19 08:12 02/22/19 08:12 Intake & Output 02/21/19 02/22/19 02/23/19 06:59 06:59 06:59 Intake Total 1457 5199 720 Output Total 375 700 Balance 1082 4499 720 Weight 76.3 kg 76.2 kg General appearance: PRESENT: no acute distress, cooperative Head exam: PRESENT: atraumatic, normocephalic Eye exam: PRESENT: EOMI, PERRLA. ABSENT: scleral icterus Mouth exam: PRESENT: moist, neck supple Neck exam: ABSENT: meningismus, tenderness, thyromegaly, tracheal deviation Respiratory exam: PRESENT: unlabored. ABSENT: chest wall tenderness, tachypnea, wheezes Pulses: PRESENT: normal radial pulses Vascular exam: PRESENT: pallor - Mild GI/Abdominal exam: PRESENT: soft. ABSENT: distended, tenderness Rectal exam: PRESENT: deferred Extremities exam: ABSENT: clubbing Musculoskeletal exam: ABSENT: deformity Neurological exam: PRESENT: alert, awake, oriented to person, oriented to place, oriented to time, oriented to situation, CN II-XII grossly intact Psychiatric exam: ABSENT: agitated, anxious, depressed Focused psych exam: ABSENT: delusional Skin exam: ABSENT: cyanosis, erythema, jaundice Results Laboratory Results: 02/22/19 06:23 02/21/19 06:15 02/21/19 02/22/19 18:45 06:23 WBC 3.1 L 3.3 L RBC 2.88 L 2.89 L Hgb 9.5 L D 9.7 L Hct 27.8 L 27.9 L MCV 97 D 97 MCH 33.2 33.4 MCHC 34.3 34.6 RDW 18.7 H 18.9 H Plt Count 74 L 73 L Seg Neutrophils % 49.0 02/20/19 02/20/19 02/20/19 14:20 14:20 18:20 Creatine Kinase 110 CK-MB (CK-2) 1.10 Troponin I 0.045 0.035 02/20/19 02/20/19 02/21/19 18:20 18:20 00:39 Creatine Kinase 98 CK-MB (CK-2) 0.88 1.04 Troponin I Cancelled 0.050 02/21/19 02/21/19 02/21/19 00:39 06:15 06:15 Creatine Kinase 98 108 CK-MB (CK-2) 1.05 Troponin I 0.047 02/21/19 02/21/19 12:46 12:46 Creatine Kinase 126 CK-MB (CK-2) 1.43 Troponin I 0.038 Impressions: Chest X-Ray 02/20/19 13:51 IMPRESSION: NO ACUTE RADIOGRAPHIC FINDING IN THE CHEST. Assessment & Plan - Diagnosis (1) Melena Is this a current diagnosis for this admission?: Yes (2) Anemia due to acute blood loss Is this a current diagnosis for this admission?: Yes - Time Time Spent with patient: Less than 15 minutes - Plan Summary Plan Summary: This is a 78-year-old male with melena and symptomatic anemia. The patient has not had a colonoscopy since the . Due to his symptomatic anemia and melena, his work-up should include colonoscopy and EGD. The patient has not had any hematochezia or hematemesis. I have discussed the plan with the patient at length. He is in agreement. Plan for bowel prep today. Plan for EGD and colonoscopy tomorrow. Continue with a PPI for now.
[2019-02-23] MEDS: RINGERS SOLUTION,LACTATED 1,000 ML IV PRN (05:36)
[2019-02-23 06:33] LABS: HEMATOCRIT 26.2 % (37.9-51.0); MEAN CORPUSCULAR HEMOGLOBIN 33.4 pg (27.0-33.4); MEAN CORPUSCULAR HGB CONC 34.2 g/dL (32.0-36.0); MEAN CORPUSCULAR VOLUME 98 fl (80-97); RED BLOOD COUNT 2.69 10^6/uL (4.35-5.55); RED CELL DISTRIBUTION WIDTH 18.4 % (11.5-14.0); WHITE BLOOD COUNT 3.3 10^3/uL (4.0-10.5)
[2019-02-23 06:46] LABS: ANION GAP 6 (5-19); BLOOD UREA NITROGEN 14 mg/dL (7-20); CALCIUM 8.3 mg/dL (8.4-10.2); CARBON DIOXIDE 24 mmol/L (22-30); CHLORIDE 109 mmol/L (98-107); GLUCOSE 85 mg/dL (75-110); POTASSIUM 3.6 mmol/L (3.6-5.0)
[2019-02-23 06:53] LABS: PLATELET COUNT 74 10^3/uL (150-450)
[2019-02-23] MEDS ORDERED: PROPOFOL INJ 200 MG/20 ML VIAL IV ONE ×2 (07:04→07:35)
--- NOTE | 2019-02-23 08:13 | PDOC PROGRESS REPORT ---
Subjective Subjective:: This is a 78-year-old male with symptomatic anemia and melena. The patient's last colonoscopy was in the . He reports orthostasis, fatigue, and malaise. He denies chest pain, shortness of breath, fevers, chills, nausea, or vomiting. He has recently had a melanotic stool. He denies abdominal pain. He has completed his bowel prep. He received 2 units of packed red blood cells yesterday. Reason For Visit: ACUTE UPPER GI BLEEDING,POSTURAL HYPOTENSION, Physical Exam Vital Signs: Temp Pulse Resp BP Pulse Ox 97.7 F 100 18 139/65 H 96 02/22/19 08:12 02/23/19 07:00 02/22/19 08:12 02/23/19 04:00 02/22/19 08:12 Intake & Output 02/22/19 02/23/19 02/24/19 06:59 06:59 06:59 Intake Total 5199 1720 Output Total 700 Balance 4499 1720 Weight 76.2 kg 74.8 kg Results Laboratory Results: 02/23/19 05:54 02/23/19 05:54 02/23/19 02/23/19 05:54 05:54 WBC 3.3 L RBC 2.69 L Hgb 9.0 L Hct 26.2 L MCV 98 H MCH 33.4 MCHC 34.2 RDW 18.4 H Plt Count 74 L Sodium 138.5 Potassium 3.6 Chloride 109 H Carbon Dioxide 24 Anion Gap 6 BUN 14 Creatinine 1.18 Est GFR ( Amer) > 60 Glucose 85 Calcium 8.3 L 02/20/19 02/20/19 02/20/19 14:20 14:20 18:20 Creatine Kinase 110 CK-MB (CK-2) 1.10 Troponin I 0.045 0.035 02/20/19 02/20/19 02/21/19 18:20 18:20 00:39 Creatine Kinase 98 CK-MB (CK-2) 0.88 1.04 Troponin I Cancelled 0.050 02/21/19 02/21/19 02/21/19 00:39 06:15 06:15 Creatine Kinase 98 108 CK-MB (CK-2) 1.05 Troponin I 0.047 02/21/19 02/21/19 12:46 12:46 Creatine Kinase 126 CK-MB (CK-2) 1.43 Troponin I 0.038 Impressions: Chest X-Ray 02/20/19 13:51 IMPRESSION: NO ACUTE RADIOGRAPHIC FINDING IN THE CHEST. Assessment & Plan - Diagnosis (1) Melena Is this a current diagnosis for this admission?: Yes (2) Anemia due to acute blood loss Is this a current diagnosis for this admission?: Yes - Time Time Spent with patient: Less than 15 minutes - Plan Summary Plan Summary: Plan for EGD and colonoscopy today for symptomatic anemia and melena. Risks/benefits discussed, informed consent obtained, and all questions answered.
--- NOTE | 2019-02-23 08:19 | Operative Report ---
Nonrecallable Operative Report DATE OF SURGERY: 02/23/19 PREOPERATIVE DIAGNOSIS: Symptomatic anemia and melena POSTOPERATIVE DIAGNOSIS: 1. Very mild gastritis, without signs of gastric ulceration. 2. Mild reflux esophagitis. 3. Internal hemorrhoids. OPERATION: 1. EGD with biopsy. 2. Colonoscopy to the cecum. SURGEON: MARIE MARQUEZ ANESTHESIA: LMAC TISSUE REMOVED OR ALTERED: 1. Antrum. 2. Distal esophagus COMPLICATIONS: None apparent ESTIMATED BLOOD LOSS: Minimal PROCEDURE: Procedure in detail: After informed consent was obtained, the patient was brought to the operating room and laid in the left lateral decubitus position. The endoscope was passed down the oropharynx, down the esophagus, and into the stomach. The stomach was insufflated with air. There is a very mild amount of gastritis present. There were no ulcerations. There was no old blood. There is no new blood. The scope was placed through the pylorus and into the first and second portions of the duodenum, which appeared completely normal. The scope was pulled back into the antrum, where biopsy was taken to rule out H. pylori infection. A retroflexion maneuver was performed, noting no significant hiatal hernia. The scope was pulled up into the distal esophagus, where a mild amount of reflux esophagitis was identified. The scope was then withdrawn up the remainder of the esophagus. The remainder of the esophagus was smooth in contour without masses, lesions, or other significant abnormalities. The scope was removed from the oropharynx, and this portion of the procedure was concluded. Attention was then turned to the colonoscopy. The endoscope was passed up the rectum, sigmoid colon, descending colon, across the transverse colon, down the ascending colon, and into the cecum. The ileocecal valve and appendiceal orifice were identified. The prep was very good. The scope was then withdrawn, circumferentially noting the mucosa. The scope was withdrawn through the ascending colon, transverse colon, descending colon, sigmoid colon, and into the rectum. Throughout the colon, there was old blood identified. There was no active bleeding. There were no masses, lesions, ulcerations, diverticula, or other obvious source of the patient's blood loss. A retroflexion maneuver was performed in the rectum noting small internal hemorrhoids. The scope was straightened, air was suctioned from the rectum, the scope was removed, and the procedure was concluded. All sponge, instrument, and needle counts were correct x2. Condition: Stable. Please note that throughout the examination, no obvious source of bleeding was identified. Further work-up per primary team.
--- NOTE | 2019-02-23 08:21 | Progress Note ---
Provider Note Provider Note: 78-year-old male status post EGD and colonoscopy for melena and symptomatic anemia. No obvious source of bleeding could be identified on either examination. I would recommend cessation of all NSAIDs. He should continue his PPI. If his anemia continues, further work-up with outpatient gastroenterology is warranted. Surgery will sign off at this time. Please renotify with any questions or concerns.
[2019-02-23] MEDS: SUCRALFATE 1 GM TABLET PO SCH ×4 (08:53→21:12)
[2019-02-23] MEDS: MULTIVITAMIN TABLET PO SCH (10:44)
[2019-02-23] MEDS: FOLIC ACID 1 MG TABLET PO SCH (10:44)
[2019-02-23] MEDS: ESCITALOPRAM OXALATE 10 MG TABLET PO SCH (10:44)
[2019-02-23] MEDS: TAMSULOSIN HCL 0.4 MG CAP.SR.24H PO SCH ×2 (10:44→17:57)
[2019-02-23] MEDS: PANTOPRAZOLE SODIUM 40 MG VIAL IV SCH ×2 (10:44→21:12)
[2019-02-23] MEDS: ALLOPURINOL 300 MG TABLET PO SCH (10:45)
[2019-02-23] MEDS: DOCUSATE SODIUM 100 MG/10 ML UDC PO SCH ×2 (10:45→17:58)
--- NOTE | 2019-02-23 14:17 | PDOC PROGRESS REPORT ---
Subjective Progress Note for:: 02/23/19 Subjective:: This is a 78-year-old male who presented with a few week history of melanotic stools, lightheadedness and shortness of breath. He was found to be anemic and was found to have a positive FOBT. He was admitted for likely upper GI bleed. 02/21: This morning, patient appears comfortable. He denies abdominal pain. He does report that he takes a lot of Aleve at home for his joint pains. Hemoglobin dropped down to 7.1. Will order 2 units of packed RBC. Surgicalist has been consulted for EGD. 02/22: Patient reports he had an episode of black tarry stool overnight. He also complained of urinary frequency last night. Denies chest pain, shortness of breath or dizziness. Hemoglobin has improved and remained stable after transfusion. He is scheduled for an EGD and colonoscopy tomorrow by surgery. 02/23: Patient still has an episode of melena overnight. He just got back from EGD and colonoscopy. No definite source of bleeding was identified. He does h ave a systolic murmur suspicious for aortic stenosis. Echocardiogram done and pending report. Considering possibility of Heyde's syndrome. Reason For Visit: ACUTE UPPER GI BLEEDING,POSTURAL HYPOTENSION, Physical Exam Vital Signs: Temp Pulse Resp BP Pulse Ox 97.9 F 69 17 144/51 H 96 02/23/19 08:25 02/23/19 13:27 02/23/19 08:25 02/23/19 08:25 02/23/19 08:25 Intake & Output 02/22/19 02/23/19 02/24/19 06:59 06:59 06:59 Intake Total 5199 1720 640 Output Total 700 Balance 4499 1720 640 Weight 167 lb 15.876 oz 164 lb 14.492 oz General appearance: PRESENT: no acute distress, well-developed, well-nourished Head exam: PRESENT: atraumatic, normocephalic Eye exam: PRESENT: conjunctiva pink, EOMI, PERRLA. ABSENT: scleral icterus Ear exam: PRESENT: normal external ear exam Mouth exam: PRESENT: moist, tongue midline Neck exam: ABSENT: carotid bruit, JVD, lymphadenopathy, thyromegaly Respiratory exam: PRESENT: clear to auscultation yimi. ABSENT: rales, rhonchi, wheezes Cardiovascular exam: PRESENT: RRR, systolic murmur. ABSENT: rubs Pulses: PRESENT: normal dorsalis pedis pul GI/Abdominal exam: PRESENT: normal bowel sounds, soft. ABSENT: distended, guarding, mass, organolmegaly, rebound, tenderness Rectal exam: PRESENT: deferred Neurological exam: PRESENT: alert, awake, oriented to person, oriented to place, oriented to time, oriented to situation, CN II-XII grossly intact. ABSENT: motor sensory deficit Results Laboratory Results: 02/23/19 05:54 02/23/19 05:54 02/23/19 02/23/19 05:54 05:54 WBC 3.3 L RBC 2.69 L Hgb 9.0 L Hct 26.2 L MCV 98 H MCH 33.4 MCHC 34.2 RDW 18.4 H Plt Count 74 L Sodium 138.5 Potassium 3.6 Chloride 109 H Carbon Dioxide 24 Anion Gap 6 BUN 14 Creatinine 1.18 Est GFR ( Amer) > 60 Glucose 85 Calcium 8.3 L 02/20/19 02/20/19 02/20/19 14:20 14:20 18:20 Creatine Kinase 110 CK-MB (CK-2) 1.10 Troponin I 0.045 0.035 02/20/19 02/20/19 02/21/19 18:20 18:20 00:39 Creatine Kinase 98 CK-MB (CK-2) 0.88 1.04 Troponin I Cancelled 0.050 02/21/19 02/21/19 02/21/19 00:39 06:15 06:15 Creatine Kinase 98 108 CK-MB (CK-2) 1.05 Troponin I 0.047 02/21/19 02/21/19 12:46 12:46 Creatine Kinase 126 CK-MB (CK-2) 1.43 Troponin I 0.038 Impressions: Chest X-Ray 02/20/19 13:51 IMPRESSION: NO ACUTE RADIOGRAPHIC FINDING IN THE CHEST. Assessment and Plan - Diagnosis (1) Upper gastrointestinal bleed Is this a current diagnosis for this admission?: Yes Plan: 02/21: Hemoglobin dropped down to 7.1. Will order 2 units of packed RBC. Surgical has been consulted for EGD. Continue IV Protonix. 02/22: Hemoglobin has trended up and stabilized at 9.7. Surgery has scheduled patient for EGD: This could be tomorrow. 02/23: Patient still has an episode of melena overnight. He just got back from EGD and colonoscopy. No definite source of bleeding was identified. He does have a systolic murmur suspicious for aortic stenosis. Echocardiogram done and pending report. Considering possibility of Heyde's syndrome. (2) Anemia due to acute blood loss Is this a current diagnosis for this admission?: Yes Plan: As per #1. (3) Acute kidney injury (nontraumatic) Is this a current diagnosis for this admission?: Yes Plan: Resolved with IV fluids. Likely a combination of prerenal and ATN from hypotension. - Time Time Spent with patient: 25-34 minutes
--- NOTE | 2019-02-23 16:02 | XCELERA REPORT ---
[address] [address] Transthoracic Echocardiogram Report Name: MARQUITA ALEXIS Age: 78 yrs Gender: Male : 1940 Patient Status: Inpatient Patient Location: [address] [place] [address] Study Date: 02/22/2019 06:33 PM Height: 71 in Weight: 167 lb BSA: 2.0 m2 Procedure: A two-dimensional transthoracic echocardiogram with color flow and Doppler was performed. Study Quality: Fair. Reason For Study: systolic murmur, GI bleed, assess for History: systolic murmur, GI bleed, assess for . Ordering Physician: RADHA COVARRUBIAS Performed By: Isis Larios Interpretation Summary The left ventricle is normal in size. There is normal left ventricular wall thickness. LV EF is 65% Left ventricular systolic function is normal. Doppler measurements suggest impaired left ventricular relaxation, which is associated with grade I/IV or mild diastolic dysfunction The left ventricular wall motion is normal. No ASD,VSD , or PFO. There is no thrombus. The right ventricle is normal in size and function. The right atrium is normal. The left atrial size is normal. There is mild mitral annular calcification. There is no evidence of mitral valve prolapse. There is no vegetation seen on the mitral valve. There is no mitral valve stenosis. There is a trace amount of mitral regurgitation There is no aortic valvular vegetation. There is moderate aortic stenosis There is a peak gradient of 39.9 mm of Hg , and a mean gradient of 23.8 mm of Hg. There is no LVOT obstruction. There is a mild amount of aortic regurgitation There is no tricuspid valve prolapse. There is no tricuspid stenosis. There is a trace amount of tricuspid regurgitation There is mild pulmonary hypertension by echo RVSP is 39 to 44 mm of Hg , with A mean of 5 to 10. There is no pulmonic valvular stenosis. There is a trace amount of pulmonic regurgitation The aortic root is normal size. The inferior vena cava appeared normal and decreased > 50% with respiration (RAP 5-10 mmHg) There is no pericardial effusion. MMode/2D Measurements & Calculations RVDd: 2.4 cm LVIDd: 4.9 cm FS: 37.2 % Ao root diam: 3.1 cm IVSd: 1.1 cm LVIDs: 3.1 cm EDV(Teich): 113.8 ml Ao root area: 7.7 cm2 LVPWd: 1.0 cm ESV(Teich): 37.5 ml LA dimension: 3.8 cm EF(Teich): 67.0 % Doppler Measurements & Calculations MV E max addy: MV P1/2t max addy: Ao V2 max: LV V1 max P.6 cm/sec 89.0 cm/sec 316.0 cm/sec 4.6 mmHg MV A max addy: MV P1/2t: 56.0 msec Ao max PG: LV V1 mean P.7 cm/sec MVA(P1/2t): 3.9 cm2 39.9 mmHg 2.5 mmHg MV E/A: 0.69 MV dec slope: Ao V2 mean: LV V1 max: 231.6 cm/sec 107.1 cm/sec 465.5 cm/sec2 Ao mean PG: LV V1 mean: MV dec time: 0.20 sec 23.8 mmHg 72.6 cm/sec Ao V2 VTI: 72.6 cmLV V1 VTI: 23.3 cm PA V2 max: PI end-d addy: TR max addy: MV P1/2t-pr_phl: 91.2 cm/sec 80.4 cm/sec 291.0 cm/sec 56.0 msec PA max P.3 mmHg TR max P.9 mmHg Left Ventricle The left ventricle is normal in size. There is normal left ventricular wall thickness. LV EF is 65%. Left ventricular systolic function is normal. Doppler measurements suggest impaired left ventricular relaxation, which is associated with grade I/IV or mild diastolic dysfunction. The left ventricular wall motion is normal. No ASD,VSD , or PFO. There is no thrombus. Right Ventricle The right ventricle is normal in size and function. Atria The right atrium is normal. The left atrial size is normal. Mitral Valve There is mild mitral annular calcification. There is no evidence of mitral valve prolapse. There is no vegetation seen on the mitral valve. There is no mitral valve stenosis. There is a trace amount of mitral regurgitation. Aortic Valve There is no aortic valvular vegetation. There is moderate aortic stenosis. There is a peak gradient of 39.9 mm of Hg , and a mean gradient of 23.8 mm of Hg. There is no LVOT obstruction. There is a mild amount of aortic regurgitation. Tricuspid Valve There is no tricuspid valve prolapse. There is no tricuspid stenosis. There is a trace amount of tricuspid regurgitation. There is mild pulmonary hypertension by echo. RVSP is 39 to 44 mm of Hg , with A mean of 5 to 10. Pulmonic Valve There is no pulmonic valvular stenosis. There is a trace amount of pulmonic regurgitation. Great Vessels The aortic root is normal size. The inferior vena cava appeared normal and decreased > 50% with respiration (RAP 5-10 mmHg). Effusions There is no pericardial effusion. : RADHA COVARRUBIAS Lakshmi
--- NOTE | 2019-02-23 17:14 | PDOC TRANSFER SUMMARY ---
General Admission Date/PCP: 02/20/19 20:18 WINSTON ENGEL Resuscitation Status: Full Code - Transfer Diagnosis (1) Upper gastrointestinal bleed Is this a current diagnosis for this admission?: Yes (2) Anemia due to acute blood loss Is this a current diagnosis for this admission?: Yes (3) Acute kidney injury (nontraumatic) Is this a current diagnosis for this admission?: Yes (4) Aortic stenosis Is this a current diagnosis for this admission?: Yes - Transfer Medications Home Medications: Allopurinol [Zyloprim 300 mg Tablet] 300 mg PO DAILY 02/20/19 Amlodipine Besylate [Norvasc 5 mg Tablet] 5 mg PO DAILY 02/20/19 Azelastine HCl 1 spray NS BID 02/20/19 Clopidogrel Bisulfate [Plavix 75 mg Tablet] 75 mg PO DAILY 02/20/19 Escitalopram Oxalate [Lexapro 10 mg Tablet] 10 mg PO DAILY 02/20/19 Folic Acid [Folvite 1 mg Tablet] 1 mg PO DAILY 02/20/19 Leflunomide [Arava 20 mg Tablet] 20 mg PO DAILY 02/20/19 Losartan Potassium [Cozaar 50 mg Tablet] 50 mg PO DAILY 02/20/19 Methotrexate Sodium [Rheumatrex 2.5 mg Tablet] 5 mg PO FR@1000 02/20/19 Montelukast Sodium [Singulair 10 mg Tablet] 10 mg PO QPM 02/20/19 Multivitamin [One-A-Day Essential] 1 each PO DAILY 02/20/19 Tamsulosin HCl [Flomax] 0.4 mg PO BID 02/20/19 Turmeric Root Extract [Turmeric Curcumin] 500 mg PO DAILY 02/20/19 Transfer Medications: Current Medications Acetaminophen (Tylenol 325 Mg Tablet) 650 mg PO Q4HP PRN PRN Reason: For headache, pain or fever Stop: 03/22/19 20:20 Last Admin: 02/20/19 23:55 Dose: 650 mg Documented by: Acetaminophen (Tylenol 650 Mg Supp) 650 mg MO Q4HP PRN PRN Reason: For headache, pain or fever Stop: 03/22/19 20:20 Al Hydrox/Mg Hydrox/Simethicone (Maalox Plus Susp 30 Udcup) 30 ml PO Q6HP PRN PRN Reason: HEARTBURN Stop: 03/22/19 20:13 Allopurinol (Zyloprim 300 Mg Tablet) 300 mg PO DAILY ALVARO Stop: 03/23/19 09:59 Last Admin: 02/23/19 10:45 Dose: 300 mg Documented by: Docusate Sodium (Colace Udc 100 Mg/10 Ml Oral Soln) 100 mg PO BID ALVARO Stop: 03/23/19 09:59 Last Admin: 02/23/19 10:45 Dose: Not Given Documented by: Escitalopram Oxalate (Lexapro 10 Mg Tablet) 10 mg PO DAILY ALVARO Stop: 03/23/19 09:59 Last Admin: 02/23/19 10:44 Dose: 10 mg Documented by: Folic Acid (Folvite 1 Mg Tablet) 1 mg PO DAILY ALVARO Stop: 03/23/19 09:59 Last Admin: 02/23/19 10:44 Dose: 1 mg Documented by: Lactated Ringer's (Lactated Ringers 1000 Ml Iv Soln) 1,000 mls @ 167 mls/hr IV CONTINUOUS PRN PRN Reason: THIS MED IS NOT "PRN" Stop: 03/22/19 20:13 Last Admin: 02/23/19 05:36 Dose: 167 mls/hr Documented by: Magnesium Hydroxide (Milk Of Magnesia 30 Ml Udcup) 30 ml PO HSP PRN PRN Reason: FOR CONSTIPATION Stop: 03/22/19 20:13 Montelukast Sodium (Singulair 10 Mg Tablet) 10 mg PO QPM ALVARO Stop: 03/23/19 17:59 Last Admin: 02/22/19 18:33 Dose: 10 mg Documented by: Multivitamins (Tab-A-Marysol (Multiple Vitamin) Tablet) 1 tab PO DAILY ALVARO Stop: 03/23/19 09:59 Last Admin: 02/23/19 10:44 Dose: 1 tab Documented by: Nalbuphine HCl (Nubain Inj 10 Mg/1 Ml Ampule) 0 mg IV Q3H PRN; Protocol PRN Reason: FOR PAIN Stop: 02/27/19 20:20 Pantoprazole Sodium (Protonix Iv Inj 40 Mg Vial) 40 mg IV Q12 ALVARO Stop: 02/27/19 21:59 Last Admin: 02/23/19 10:44 Dose: 40 mg Documented by: Promethazine HCl (Phenergan Inj 25 Mg/1 Ml Vial) 12.5 mg IV Q4HP PRN PRN Reason: UNRESOLVED NAUSEA/VOMITING Stop: 03/22/19 20:23 Sodium Chloride (Saline Flush 2.5 Ml Monoject Prefil Syrin) 2.5 ml IV Q8 ALVARO Stop: 03/22/19 21:59 Last Admin: 02/23/19 13:01 Dose: Not Given Documented by: Sucralfate (Carafate 1 Gm Tablet) 1 gm PO ACHS ALVARO Stop: 03/22/19 21:59 Last Admin: 02/23/19 10:44 Dose: 1 gm Documented by: Tamsulosin HCl (Flomax 0.4 Mg Cap.Sr) 0.4 mg PO BID ALVARO Stop: 03/23/19 09:59 Last Admin: 02/23/19 10:44 Dose: 0.4 mg Documented by: - Allergies Allergies/Adverse Reactions: No Known Allergies Allergy (Verified 09/21/14 10:54) Hospital Course Hospital Course: This 78-year-old male with past medical history of hypertension, BPH and rheumatoid arthritis on methotrexate who presented with multiple episodes of melanotic stools. Patient was admitted for possible upper GI bleed. He was started on IV Protonix and Carafate. Surgical service was consulted. He underwent EGD and colonoscopy which did not identify any definite source of bleeding. He did have old blood noted on the colon during endoscopy. His hemoglobin dropped from 9.2 to 7.1. He received 2 units of packed RBC. Hemoglobin after transfusion improved to 9.7 but went down to 9.0 again earlier today. He continued to have black tarry stools. He was also noted to have a systolic murmur suspicious for . An e chocardiogram was pursued and did confirm he has moderate aortic stenosis. Question of Heyde syndrome in the presence of . Suspect small intestine as source of possible bleeding. Patient did report he does take occasional Aleve at home for his arthritis. Patient will be transferred to [facility] for possible push enteroscopy. Discussed with [facility] hospitalist, Dr. Mojica who accepted the transfer. Physical Exam Vital Signs: Temp Pulse Resp BP Pulse Ox 97.9 F 69 17 144/51 H 96 02/23/19 08:25 02/23/19 13:27 02/23/19 08:25 02/23/19 08:25 02/23/19 08:25 Intake & Output 02/22/19 02/23/19 02/24/19 06:59 06:59 06:59 Intake Total 5199 1720 640 Output Total 700 Balance 4499 1720 640 Weight 167 lb 15.876 oz 164 lb 14.492 oz General appearance: PRESENT: no acute distress, well-developed, well-nourished Head exam: PRESENT: atraumatic, normocephalic Eye exam: PRESENT: conjunctiva pink, EOMI, PERRLA. ABSENT: scleral icterus Ear exam: PRESENT: normal external ear exam Mouth exam: PRESENT: moist, tongue midline Neck exam: ABSENT: carotid bruit, JVD, lymphadenopathy, thyromegaly Respiratory exam: PRESENT: clear to auscultation yimi. ABSENT: rales, rhonchi, wheezes Pulses: PRESENT: normal dorsalis pedis pul GI/Abdominal exam: PRESENT: normal bowel sounds, soft. ABSENT: distended, guarding, mass, organolmegaly, rebound, tenderness Rectal exam: PRESENT: deferred Extremities exam: PRESENT: full ROM. ABSENT: calf tenderness, clubbing, pedal edema Neurological exam: PRESENT: alert, awake, oriented to person, oriented to place, oriented to time, oriented to situation, CN II-XII grossly intact. ABSENT: motor sensory deficit Results Laboratory Results: 02/23/19 05:54 02/23/19 05:54 02/23/19 02/23/19 05:54 05:54 WBC 3.3 L RBC 2.69 L Hgb 9.0 L Hct 26.2 L MCV 98 H MCH 33.4 MCHC 34.2 RDW 18.4 H Plt Count 74 L Sodium 138.5 Potassium 3.6 Chloride 109 H Carbon Dioxide 24 Anion Gap 6 BUN 14 Creatinine 1.18 Est GFR ( Amer) > 60 Glucose 85 Calcium 8.3 L 02/20/19 02/20/19 02/20/19 14:20 14:20 18:20 Creatine Kinase 110 CK-MB (CK-2) 1.10 Troponin I 0.045 0.035 02/20/19 02/20/19 02/21/19 18:20 18:20 00:39 Creatine Kinase 98 CK-MB (CK-2) 0.88 1.04 Troponin I Cancelled 0.050 02/21/19 02/21/19 02/21/19 00:39 06:15 06:15 Creatine Kinase 98 108 CK-MB (CK-2) 1.05 Troponin I 0.047 02/21/19 02/21/19 12:46 12:46 Creatine Kinase 126 CK-MB (CK-2) 1.43 Troponin I 0.038 Impressions: Chest X-Ray 02/20/19 13:51 IMPRESSION: NO ACUTE RADIOGRAPHIC FINDING IN THE CHEST.
[2019-02-23 17:26] LABS: ABSOLUTE EOSINOPHILS # (AUTO) 0.7 10^3/uL (0.0-0.6); ABSOLUTE LYMPHOCYTES (AUTO) 0.6 10^3/uL (0.5-4.7); ABSOLUTE MONOCYTES (AUTO) 0.4 10^3/uL (0.1-1.4); ABSOLUTE NEUT (AUTO) 1.8 10^3/uL (1.7-8.2); BASOPHILS % (AUTO) 0.5 % (0-2); EOSINOPHILS % (AUTO) 19.5 % (0-6); HEMATOCRIT 27.7 % (37.9-51.0); HEMOGLOBIN 9.4 g/dL (13.5-17.0); LYMPHOCYTES % (AUTO) 17.3 % (13-45); MEAN CORPUSCULAR HEMOGLOBIN 33.4 pg (27.0-33.4); MEAN CORPUSCULAR HGB CONC 33.9 g/dL (32.0-36.0); MEAN CORPUSCULAR VOLUME 98 fl (80-97); MONOCYTES % (AUTO) 11.6 % (3-13); RED BLOOD COUNT 2.82 10^6/uL (4.35-5.55); RED CELL DISTRIBUTION WIDTH 18.9 % (11.5-14.0); SEGMENTED NEUTROPHILS % (AUTO) 51.1 % (42-78); TOTAL CELLS COUNTED % (AUTO) 100 %; WHITE BLOOD COUNT 3.5 10^3/uL (4.0-10.5)
[2019-02-23] MEDS: MONTELUKAST SODIUM 10 MG TABLET PO SCH (17:57)
[2019-02-23 18:04] LABS: PLATELET COUNT 77 10^3/uL (150-450)
[2019-02-23] MEDS: ACETAMINOPHEN 325 MG TABLET PO PRN (21:11)
[2019-02-24 10:34] LABS: ABSOLUTE EOSINOPHILS # (AUTO) 0.6 10^3/uL (0.0-0.6); ABSOLUTE LYMPHOCYTES (AUTO) 0.5 10^3/uL (0.5-4.7); ABSOLUTE MONOCYTES (AUTO) 0.6 10^3/uL (0.1-1.4); ABSOLUTE NEUT (AUTO) 2.2 10^3/uL (1.7-8.2); BASOPHILS % (AUTO) 0.7 % (0-2); EOSINOPHILS % (AUTO) 16.6 % (0-6); HEMATOCRIT 28.5 % (37.9-51.0); HEMOGLOBIN 9.8 g/dL (13.5-17.0); LYMPHOCYTES % (AUTO) 13.2 % (13-45); MEAN CORPUSCULAR HEMOGLOBIN 33.7 pg (27.0-33.4); MEAN CORPUSCULAR HGB CONC 34.2 g/dL (32.0-36.0); MEAN CORPUSCULAR VOLUME 99 fl (80-97); MONOCYTES % (AUTO) 14.1 % (3-13); RED CELL DISTRIBUTION WIDTH 18.1 % (11.5-14.0); SEGMENTED NEUTROPHILS % (AUTO) 55.4 % (42-78); TOTAL CELLS COUNTED % (AUTO) 100 %; WHITE BLOOD COUNT 3.9 10^3/uL (4.0-10.5)
[2019-02-24] MEDS: SUCRALFATE 1 GM TABLET PO SCH ×4 (10:48→22:15)
[2019-02-24] MEDS: TAMSULOSIN HCL 0.4 MG CAP.SR.24H PO SCH ×2 (10:48→17:56)
[2019-02-24] MEDS: PANTOPRAZOLE SODIUM 40 MG VIAL IV SCH ×2 (10:48→22:15)
[2019-02-24] MEDS: FOLIC ACID 1 MG TABLET PO SCH (10:48)
[2019-02-24] MEDS: DOCUSATE SODIUM 100 MG/10 ML UDC PO SCH ×2 (10:48→17:57)
[2019-02-24] MEDS: ESCITALOPRAM OXALATE 10 MG TABLET PO SCH (10:48)
[2019-02-24] MEDS: MULTIVITAMIN TABLET PO SCH (10:48)
[2019-02-24] MEDS: ALLOPURINOL 300 MG TABLET PO SCH (10:49)
[2019-02-24 10:54] LABS: PLATELET COUNT 85 10^3/uL (150-450)
[2019-02-24] MEDS: MONTELUKAST SODIUM 10 MG TABLET PO SCH (17:56)
[2019-02-25 08:42] LABS: HEMATOCRIT 24.5 % (37.9-51.0); HEMOGLOBIN 8.3 g/dL (13.5-17.0); MEAN CORPUSCULAR HEMOGLOBIN 33.6 pg (27.0-33.4); MEAN CORPUSCULAR HGB CONC 33.9 g/dL (32.0-36.0); MEAN CORPUSCULAR VOLUME 99 fl (80-97); RED BLOOD COUNT 2.48 10^6/uL (4.35-5.55); RED CELL DISTRIBUTION WIDTH 18.7 % (11.5-14.0); WHITE BLOOD COUNT 3.4 10^3/uL (4.0-10.5)
[2019-02-25 09:08] LABS: PLATELET COUNT 66 10^3/uL (150-450)
[2019-02-25] MEDS: ESCITALOPRAM OXALATE 10 MG TABLET PO SCH (10:15)
[2019-02-25] MEDS: ALLOPURINOL 300 MG TABLET PO SCH (10:15)
[2019-02-25] MEDS: SUCRALFATE 1 GM TABLET PO SCH ×3 (10:15→17:39)
[2019-02-25] MEDS: DOCUSATE SODIUM 100 MG/10 ML UDC PO SCH ×2 (10:15→17:39)
[2019-02-25] MEDS: TAMSULOSIN HCL 0.4 MG CAP.SR.24H PO SCH ×2 (10:16→17:52)
[2019-02-25] MEDS: MULTIVITAMIN TABLET PO SCH (10:16)
[2019-02-25] MEDS: FOLIC ACID 1 MG TABLET PO SCH (10:16)
[2019-02-25] MEDS: PANTOPRAZOLE SODIUM 40 MG VIAL IV SCH (10:16)
--- NOTE | 2019-02-25 16:45 | PDOC PROGRESS REPORT ---
Subjective Progress Note for:: 02/24/19 Subjective:: This is a 78-year-old male who presented with a few week history of melanotic stools, lightheadedness and shortness of breath. He was found to be anemic and was found to have a positive FOBT. He was admitted for likely upper GI bleed. 02/21: This morning, patient appears comfortable. He denies abdominal pain. He does report that he takes a lot of Aleve at home for his joint pains. Hemoglobin dropped down to 7.1. Will order 2 units of packed RBC. Surgicalist has been consulted for EGD. 02/22: Patient reports he had an episode of black tarry stool overnight. He also complained of urinary frequency last night. Denies chest pain, shortness of breath or dizziness. Hemoglobin has improved and remained stable after transfusion. He is scheduled for an EGD and colonoscopy tomorrow by surgery. 02/23: Patient still has an episode of melena overnight. He just got back from EGD and colonoscopy. No definite source of bleeding was identified. He does h ave a systolic murmur suspicious for aortic stenosis. Echocardiogram done and pending report. Considering possibility of Heyde's syndrome. 02/24: Patient's Hb has improved. He reports his stool last night is less dark. Awaiting for transfer to [facility]. Reason For Visit: ACUTE UPPER GI BLEEDING,POSTURAL HYPOTENSION, Physical Exam Vital Signs: Temp Pulse Resp BP Pulse Ox 98.0 F 91 18 87/40 L 100 02/24/19 07:30 02/24/19 07:33 02/24/19 07:30 02/24/19 07:33 02/24/19 07:33 Intake & Output 02/23/19 02/24/19 02/25/19 06:59 06:59 06:59 Intake Total 1720 1640 Balance 1720 1640 Weight 164 lb 14.492 oz 164 lb 7.437 oz General appearance: PRESENT: no acute distress, well-developed, well-nourished Head exam: PRESENT: atraumatic, normocephalic Eye exam: PRESENT: conjunctiva pink, EOMI, PERRLA. ABSENT: scleral icterus Ear exam: PRESENT: normal external ear exam Mouth exam: PRESENT: moist, tongue midline Neck exam: ABSENT: carotid bruit, JVD, lymphadenopathy, thyromegaly Respiratory exam: PRESENT: clear to auscultation yimi. ABSENT: rales, rhonchi, wheezes Cardiovascular exam: PRESENT: RRR, systolic murmur. ABSENT: rubs Pulses: PRESENT: normal dorsalis pedis pul GI/Abdominal exam: PRESENT: normal bowel sounds, soft. ABSENT: distended, guarding, mass, organolmegaly, rebound, tenderness Rectal exam: PRESENT: deferred Neurological exam: PRESENT: alert, awake, oriented to person, oriented to place, oriented to time, oriented to situation, CN II-XII grossly intact. ABSENT: motor sensory deficit Results Laboratory Results: 02/23/19 05:54 02/23/19 17:04 WBC 3.5 L RBC 2.82 L Hgb 9.4 L Hct 27.7 L MCV 98 H MCH 33.4 MCHC 33.9 RDW 18.9 H Plt Count 77 L Seg Neutrophils % 51.1 02/20/19 02/20/19 02/20/19 14:20 14:20 18:20 Creatine Kinase 110 CK-MB (CK-2) 1.10 Troponin I 0.045 0.035 02/20/19 02/20/19 02/21/19 18:20 18:20 00:39 Creatine Kinase 98 CK-MB (CK-2) 0.88 1.04 Troponin I Cancelled 0.050 02/21/19 02/21/19 02/21/19 00:39 06:15 06:15 Creatine Kinase 98 108 CK-MB (CK-2) 1.05 Troponin I 0.047 02/21/19 02/21/19 12:46 12:46 Creatine Kinase 126 CK-MB (CK-2) 1.43 Troponin I 0.038 Impressions: Chest X-Ray 02/20/19 13:51 IMPRESSION: NO ACUTE RADIOGRAPHIC FINDING IN THE CHEST. Assessment and Plan - Diagnosis (1) Upper gastrointestinal bleed Is this a current diagnosis for this admission?: Yes Plan: 02/21: Hemoglobin dropped down to 7.1. Will order 2 units of packed RBC. Surgical has been consulted for EGD. Continue IV Protonix. 02/22: Hemoglobin has trended up and stabilized at 9.7. Surgery has scheduled patient for EGD: This could be tomorrow. 02/23: Patient still has an episode of melena overnight. He just got back from EGD and colonoscopy. No definite source of bleeding was identified. He does have a systolic murmur suspicious for aortic stenosis. Echocardiogram done and pending report. Considering possibility of Heyde's syndrome. 02/24: Patient's Hb has improved. He reports his stool last night is less dark. Awaiting for transfer to [facility]. (2) Anemia due to acute blood loss Is this a current diagnosis for this admission?: Yes Plan: As per #1. (3) Acute kidney injury (nontraumatic) Is this a current diagnosis for this admission?: Yes Plan: Resolved with IV fluids. Likely a combination of prerenal and ATN from hypotension. (4) Aortic stenosis Is this a current diagnosis for this admission?: Yes - Time Time Spent with patient: 25-34 minutes
--- NOTE | 2019-02-25 16:46 | Progress Note ---
Provider Note Provider Note: Patient had 3 episodes of dark, tarry stool again this morning. Hemoglobin dropped to 8.3. Platelet also went down to 66. Will order platelet transfusion. He already has a bed at [facility] and will be transported soon.
[2019-02-25 17:17] VITALS: BP 168/63
[2019-02-25] MEDS: MONTELUKAST SODIUM 10 MG TABLET PO SCH (17:52)
== END 2019-02-25 20:40 | disposition short-term general hospital (02) | DRG 378 ==
LOC: ER 13:15 → EH 20:18 → 3S 23:05
PROVIDERS: ADMIT Emergency Medicine; ATTEND Emergency Medicine
PROC: 30233N1 Transfusion of Nonautologous Red Blood Cells into Peripheral Vein, Percutaneous Approach (ICD-10-PCS; 2019-02-21)
PROC: 0DJD8ZZ Inspection of Lower Intestinal Tract, Via Natural or Artificial Opening Endoscopic (ICD-10-PCS; 2019-02-23)
PROC: 0DB58ZX Excision of Esophagus, Via Natural or Artificial Opening Endoscopic, Diagnostic (ICD-10-PCS; 2019-02-23)
PROC: 0DB78ZX Excision of Stomach, Pylorus, Via Natural or Artificial Opening Endoscopic, Diagnostic (ICD-10-PCS; principal; 2019-02-23 07:30)
PROC: 30233R1 Transfusion of Nonautologous Platelets into Peripheral Vein, Percutaneous Approach (ICD-10-PCS; 2019-02-25)
DX: K92.1 Melena (principal); N17.9 Acute kidney failure, unspecified; D62 Acute posthemorrhagic anemia; D68.0 Von Willebrand disease; I35.0 Nonrheumatic aortic (valve) stenosis; E86.0 Dehydration; K29.70 Gastritis, unspecified, without bleeding; K44.9 Diaphragmatic hernia without obstruction or gangrene; K64.8 Other hemorrhoids; I10 Essential (primary) hypertension; N40.0 Benign prostatic hyperplasia without lower urinary tract symptoms; I95.1 Orthostatic hypotension; M19.90 Unspecified osteoarthritis, unspecified site; M06.9 Rheumatoid arthritis, unspecified; M10.9 Gout, unspecified; Z82.49 Family history of ischemic heart disease and other diseases of the circulatory system; Z82.61 Family history of arthritis; Z83.3 Family history of diabetes mellitus; D69.59 Other secondary thrombocytopenia
CPT/HCPCS: 36415; 36430; 43239; 71046; 80048; 80053; 81001; 813; 82550; 82553; 83735; 84439; 84443; 84481; 84484; 85025; 85027; 85610; 85730; 86850; 86900; 86901; 86920; 88305; 88342; 93005; 93010; 93306; 96365; 96366; 96375; 99285; C9113; J2704; J3490; J7030; J7120; P9016; P9035; S0028

== ENCOUNTER 2019-06-04 19:26 | Emergency (ER) | payer MEDICARE, BC ==
[2019-06-04 20:12] LABS: HEMATOCRIT 23.6 % (37.9-51.0); MEAN CORPUSCULAR HEMOGLOBIN 34.1 pg (27.0-33.4); MEAN CORPUSCULAR HGB CONC 34.1 g/dL (32.0-36.0); MEAN CORPUSCULAR VOLUME 100 fl (80-97); RED BLOOD COUNT 2.35 10^6/uL (4.35-5.55); RED CELL DISTRIBUTION WIDTH 16.8 % (11.5-14.0); WHITE BLOOD COUNT 5.9 10^3/uL (4.0-10.5)
[2019-06-04 20:13] LABS: PLATELET COUNT 71 10^3/uL (150-450)
[2019-06-04 20:18] LABS: ALKALINE PHOSPHATASE 239 U/L (38-126); ANION GAP 7 (5-19); ASPARTATE AMINO TRANSFERASE 78 U/L (17-59); BILIRUBIN,TOTAL 0.4 mg/dL (0.2-1.3); BLOOD UREA NITROGEN 24 mg/dL (7-20); CALCIUM 8.2 mg/dL (8.4-10.2); CARBON DIOXIDE 23 mmol/L (22-30); CHLORIDE 102 mmol/L (98-107); CREATINE KINASE 74 U/L (55-170); GLUCOSE 135 mg/dL (75-110); POTASSIUM 4.8 mmol/L (3.6-5.0); TOTAL PROTEIN 7.3 g/dL (6.3-8.2)
--- NOTE | 2019-06-04 20:31 | ER Document Report ---
ED Dizziness/Weakness - General Chief Complaint: Near Syncope Stated Complaint: NEAR SYNCOPE Time Seen by Provider: 06/04/19 20:12 Notes: Patient is a 79-year-old male that comes to the emergency department for chief complaint of an episode at dinner where he suddenly felt lightheaded, his family states he became pale, he states he felt like he was going to pass out. Patient did not have a syncopal episode, he denies chest pain during the process, he states he feels fine now. Patient states that over the past day or so he has started feeling some vague shortness of breath as well. Patient is status post aortic valve replacement by Dr. Falcon at [place] on 05/30/2019. Patient denies fever, nausea or vomiting, blood in the stool, or any other complaints. He is on aspirin, Plavix, has a history of hypertension, RA on MTX, BPH, and he did previously have an upper GI bleed. Family states they believe he was hypotensive as well. He came by EMS, EMS reported an initial blood pressure of 124/63. Family states that they checked his blood pressure this morning and it was 120/40. No reported systolic blood pressures less than 120. TRAVEL OUTSIDE OF THE [place] IN LAST 30 DAYS: No - Related Data Allergies/Adverse Reactions: No Known Allergies Allergy (Verified 09/21/14 10:54) Past Medical History - General Information source: Patient - Social History Smoking Status: Never Smoker Frequency of alcohol use: None Drug Abuse: None Lives with: Family Family History: Arthritis, CAD, DM, Hypertension, Malignancy, Other - Peripheral vascular disease Patient has suicidal ideation: No Patient has homicidal ideation: No - Past Medical History Cardiac Medical History: Reports: Hx Hypertension, Hx Heart Murmur - aortic valve (replaced now) Denies: Hx Coronary Artery Disease, Hx Hypercholesterolemia Pulmonary Medical History: Denies: Hx Asthma, Hx COPD Neurological Medical History: Denies: Hx Seizures Endocrine Medical History: Denies: Hx Diabetes Mellitus Type 1, Hx Diabetes Mellitus Type 2, Hx Hyperthyroidism, Hx Hypothyroidism Renal/ Medical History: Reports: Hx Benign Prostatic Hyperplasia GI Medical History: Denies: Hx Cirrhosis, Hx Crohn's Disease, Hx Gastroesophageal Reflux Disease, Hx Hepatitis, Hx Ulcerative Colitis Musculoskeletal Medical History: Reports Hx Arthritis - Rheumatoid arthritis, Reports Hx Gout Skin Medical History: Denies Hx Eczema, Denies Hx Psoriasis Psychiatric Medical History: Reports: Hx Depression Infectious Medical History: Denies: Hx Hepatitis Past Surgical History: Reports: Hx Cardiac Surgery - AORTIC VALVE REPLACED 05/30/19, Hx Orthopedic Surgery - Neck surgery - Immunizations Hx Diphtheria, Pertussis, Tetanus Vaccination: Yes Review of Systems - Review of Systems Constitutional: See HPI EENT: No symptoms reported Cardiovascular: See HPI Respiratory: See HPI Gastrointestinal: No symptoms reported Genitourinary: No symptoms reported Male Genitourinary: No symptoms reported Musculoskeletal: No symptoms reported Skin: No symptoms reported Hematologic/Lymphatic: No symptoms reported Neurological/Psychological: No symptoms reported Physical Exam - Vital signs Vitals: Resp BP 19 130/64 H 06/04/19 19:31 06/04/19 19:31 - Notes Notes: GENERAL: Alert, interacts well. No acute distress. HEAD: Normocephalic, atraumatic. EYES: Pupils equal, round, and reactive to light. Extraocular movements intact. ENT: Oral mucosa moist, tongue midline. Oropharynx unremarkable. Airway patent. LUNGS: Clear to auscultation bilaterally, no wheezes, rales, or rhonchi. No respiratory distress. HEART: Regular rate and rhythm. 1/6 murmur heard throughout ABDOMEN: Soft, non-tender. Non-distended. Bowel sounds present in all 4 quadrants. EXTREMITIES: Moves all 4 extremities spontaneously. No edema, strong radial and dorsalis pedis pulses bilaterally. No cyanosis. BACK: no cervical, thoracic, lumbar midline tenderness. No saddle anesthesia, normal distal neurovascular exam. Moves all extremities in full range of motion. NEUROLOGICAL: Alert and oriented x3. Normal speech. Cranial nerves II through XII grossly intact. PSYCH: Normal affect, normal mood. SKIN: Warm, dry, normal turgor. No rashes or lesions noted. Course - Re-evaluation Re-evalutation: 06/04/19 20:30 Initial evaluation patient is asymptomatic, well-appearing, vital signs unremarkable with normal heart rate and rhythm, blood pressure 124/62, pulse oxygenation 100% on room air, clear lungs, no signs of distress. Work-up pending. CBC does not show leukocytosis, hemoglobin is 8 but previous was 8.3, macrocytic anemia. CBC does show 6% bandemia. Lactic acid is not elevated. Chemistry is nonspecific with mildly elevated creatinine similar to prior. Troponin is elevated at 0.2, BNP is 1040. I do not hear rales on exam, patient has no lower extremity swelling, chest x-ray does not show vascular congestion. Chest x-ray does indicate left lower lobe pneumonia. I do suspect patient has pneumonia based on his progressive shortness of breath, weakness, bandemia, chest x-ray. Patient will be started on antibiotics for hospital-acquired pneumonia, giving cefepime and vancomycin. Discussed with Dr. Parks, because patient is postoperative, had recent valvular surgery with elevated troponin, recommendations for patient to be transferred back to [place] for continued care. Family is very agreeable with this and states this is their preference. 06/04/19 22:[address] Keenan, hospitalist, patient is accepted for transfer. Family states appreciation and agreement pending bed assignment for transfer. 06/05/19 00:50 We do have a bed, I reevaluated patient at bedside, EMS team is going to be here shortly. Patient states his headache from earlier resolved when I gave him Tylenol, he has no additional complaints, he denies current shortness of breath, chest pain, or dizziness. No change in vital signs. Patient is stable for transport. - Vital Signs Vital signs: Temp Pulse Resp BP Pulse Ox 98.1 F 82 15 121/62 99 06/05/19 01:32 06/04/19 19:50 06/05/19 01:32 06/05/19 01:32 06/05/19 01:32 - Laboratory Result Diagrams: 06/04/19 19:38 06/04/19 19:38 Laboratory results interpreted by me: 06/04/19 06/04/19 06/04/19 19:38 19:38 19:38 RBC 2.35 L Hgb 8.0 L Hct 23.6 L MCV 100 H MCH 34.1 H RDW 16.8 H Plt Count 71 L Band Neutrophils % 6 H Monocytes % (Manual) 14 H Sodium 132.4 L BUN 24 H Creatinine 1.42 H Est GFR ( Amer) 58 L Est GFR (MDRD) Non-Af 48 L Glucose 135 H Calcium 8.2 L AST 78 H Alkaline Phosphatase 239 H NT-Pro-B Natriuret Pep 1060 H Albumin 3.0 L Urine Protein Urine Blood Ur Leukocyte Esterase Urine Ascorbic Acid 06/04/19 21:48 RBC Hgb Hct MCV MCH RDW Plt Count Band Neutrophils % Monocytes % (Manual) Sodium BUN Creatinine Est GFR ( Amer) Est GFR (MDRD) Non-Af Glucose Calcium AST Alkaline Phosphatase NT-Pro-B Natriuret Pep Albumin Urine Protein 30 H Urine Blood MODERATE H Ur Leukocyte Esterase TRACE H Urine Ascorbic Acid 40 H - EKG Interpretation by Me Additional EKG results interpreted by me: EKG shows sinus rhythm at a rate of 78, borderline right bundle branch block, there is ST segment elevation in lead II but not in contiguous leads, no T wave inversions, normal axis. QTC of 470. EKG reviewed with Dr. Mir. Discharge - Discharge Clinical Impression: Syncope, near, Shortness of breath, Post-op pneumonia, Elevated troponin Condition: Stable Disposition: [facility]
[2019-06-04 20:32] LABS: CREATINE KINASE MB 0.51 ng/mL (<4.55)
[2019-06-04 20:39] LABS: ABSOLUTE LYMPHOCYTES# (MANUAL) 0.9 10^3/uL (0.5-4.7); ABSOLUTE MONOCYTES # (MANUAL) 0.8 10^3/uL (0.1-1.4); BAND NEUTROPHILS % (MANUAL) 6 % (3-5); BASOPHILS % (MANUAL) 0 % (0-2); EOSINOPHILS % (MANUAL) 5 % (0-6); LYMPHOCYTES % (MANUAL) 16 % (13-45); MONOCYTES % (MANUAL) 14 % (3-13); SEGMENTED NEUTROPHILS % (MAN) 59 % (42-78); TOTAL CELLS COUNTED 100
[2019-06-04 20:41] LABS: ANISOCYTOSIS 1+; PLATELET COMMENT DECREASED; POLYCHROMASIA 1+; TOXIC GRANULATION 1+
[2019-06-04 20:49] LABS: TROPONIN I 0.204 ng/mL
[2019-06-04 21:18] LABS: PROTHROMBIN TIME 14.2 SEC (11.4-15.4)
[2019-06-04 21:19] LABS: PARTIAL THROMBOPLASTIN TIME 27.8 SEC (23.5-35.8)
--- NOTE | 2019-06-04 21:30 | RADIOLOGY REPORT (SQ) ---
EXAM DESCRIPTION: XR CHEST 1 VIEW COMPLETED DATE/TME: 06/04/2019 20:49 CLINICAL HISTORY: 79 years, Male, shortness of breath COMPARISON: None. NUMBER OF VIEWS: Single TECHNIQUE: LIMITATIONS: None. FINDINGS: Cardiomediastinal is enlarged with postsurgical change. Chronic parenchymal lung change. Streaky airspace disease left lung base, new from prior Old posttraumatic change particularly right hemithorax. IMPRESSION: Minimal streaky airspace disease left lung base, progressive. Presumed infectious inflammatory copyright 2010 [facility] [employer]- All Rights Reserved
[2019-06-04] MEDS ORDERED: CEFEPIME 2 GM/D5W RTU 2 GM/50 ML RTUPB IV ONE (21:34)
[2019-06-04] MEDS ORDERED: VANCOMYCIN HCL INJ 1000 MG VIAL IV ONE (21:34)
[2019-06-04 22:14] LABS: APPEARANCE,URINE SLIGHTLY-CLOUDY; BILIRUBIN,URINE NEGATIVE (NEGATIVE); COLOR,URINE YELLOW; GLUCOSE, URINE NEGATIVE (NEGATIVE); KETONES,URINE NEGATIVE (NEGATIVE); LEUKOCYTE ESTERASE,URINE TRACE (NEGATIVE); NITRITE,URINE NEGATIVE (NEGATIVE); PROTEIN,URINE 30 mg/dL (NEGATIVE); URINE SPECIFIC GRAVITY 1.015; UROBILINOGEN,URINE NEGATIVE mg/dL (<2.0)
[2019-06-04] MEDS ORDERED: ACETAMINOPHEN 325 MG TABLET PO ONE (23:38)
--- NOTE | 2019-06-05 00:18 | EKG REPORT ---
SEVERITY:- ABNORMAL ECG - SINUS RHYTHM RIGHT BUNDLE BRANCH BLOCK ST ELEVATION, BORDERLINE : Confirmed by: Becki Solis 05-Jun-2019 00:17:11
[2019-06-05 01:39] VITALS: BP 121/62
== END 2019-06-05 01:41 | disposition short-term general hospital (02) ==
LOC: ER 19:26
DX: J95.89 Other postprocedural complications and disorders of respiratory system, not elsewhere classified (principal); J18.8 Other pneumonia, unspecified organism; R79.89 Other specified abnormal findings of blood chemistry; R55 Syncope and collapse; R42 Dizziness and giddiness; R06.02 Shortness of breath
CPT/HCPCS: 93005; 36415; 87040; 82553; 82550; 83605; 85025; 85610; 85730; 80053; 81001; 84484; 83880; 71045; 93010; A9270; J3370; J0692; 96365; 96366; 96367; 99285

== ENCOUNTER 2019-07-08 11:59 | Emergency (ER) | payer MEDICARE, BC ==
[2019-07-08 12:37] LABS: ABSOLUTE BASOPHILS # (AUTO) 0.1 10^3/uL (0.0-0.2); ABSOLUTE EOSINOPHILS # (AUTO) 1.2 10^3/uL (0.0-0.6); ABSOLUTE LYMPHOCYTES (AUTO) 1.3 10^3/uL (0.5-4.7); ABSOLUTE MONOCYTES (AUTO) 0.6 10^3/uL (0.1-1.4); ABSOLUTE NEUT (AUTO) 2.2 10^3/uL (1.7-8.2); BASOPHILS % (AUTO) 1.1 % (0-2); EOSINOPHILS % (AUTO) 21.6 % (0-6); HEMATOCRIT 30.8 % (37.9-51.0); HEMOGLOBIN 10.1 g/dL (13.5-17.0); INTERNATIONAL RATION (INR) 0.94; LYMPHOCYTES % (AUTO) 24.5 % (13-45); MEAN CORPUSCULAR HEMOGLOBIN 32.5 pg (27.0-33.4); MEAN CORPUSCULAR HGB CONC 32.7 g/dL (32.0-36.0); MEAN CORPUSCULAR VOLUME 99 fl (80-97); MONOCYTES % (AUTO) 10.8 % (3-13); PROTHROMBIN TIME 12.6 SEC (11.4-15.4); RED CELL DISTRIBUTION WIDTH 15.8 % (11.5-14.0); TOTAL CELLS COUNTED % (AUTO) 100 %; WHITE BLOOD COUNT 5.3 10^3/uL (4.0-10.5)
[2019-07-08 12:50] LABS: ALBUMIN 3.9 g/dL (3.5-5.0); ALKALINE PHOSPHATASE 230 U/L (38-126); ANION GAP 10 (5-19); ASPARTATE AMINO TRANSFERASE 79 U/L (17-59); BILIRUBIN,DIRECT 0.1 mg/dL (0.0-0.4); BILIRUBIN,TOTAL 0.3 mg/dL (0.2-1.3); BLOOD UREA NITROGEN 19 mg/dL (7-20); CALCIUM 8.7 mg/dL (8.4-10.2); CARBON DIOXIDE 23 mmol/L (22-30); CHLORIDE 106 mmol/L (98-107); GLUCOSE 125 mg/dL (75-110); POTASSIUM 4.5 mmol/L (3.6-5.0)
[2019-07-08 13:02] LABS: PLATELET COUNT 97 10^3/uL (150-450)
[2019-07-08 13:59] VITALS: BP 129/69
--- NOTE | 2019-07-08 14:43 | EKG REPORT ---
SEVERITY:- ABNORMAL ECG - SINUS RHYTHM RIGHT BUNDLE BRANCH BLOCK : Confirmed by: Chuy Hartley MD 08-Jul-2019 14:42:28
--- NOTE | 2019-07-09 14:26 | ER Document Report ---
Entered by SAEED HESS SCRIBE 07/08/19 8081 Acting as scribe for:LISSY WATTS MD ED General - General Chief Complaint: Near Syncope Stated Complaint: POSSIBLE SYNCOPE Time Seen by Provider: 07/08/19 12:52 Primary Care Provider: LENA MERINO MD [Primary Care Provider] - Follow up as needed Information source: Patient Notes: This 79-year-old male patient presents to the emergency department today with complaints of a near syncopal event just prior to arrival. Patient states that in the past he has had this happen and was told that if he ever felt dizzy again that he needed to lay down so that he would not pass out. Patient states that he was at [facility] today and he became dizzy and the next thing he remembers was being helped up. Patient states that bystanders at [facility] told him that he did not lose consciousness, that he gently rested himself down to the ground. TRAVEL OUTSIDE OF THE [place] IN LAST 30 DAYS: No - Related Data Allergies/Adverse Reactions: No Known Allergies Allergy (Verified 09/21/14 10:54) Home Medications: amlodipine. lexapro. mg oxide. plavix Past Medical History - General Information source: Patient - Social History Smoking Status: Unknown if Ever Smoked Cigarette use (# per day): No Frequency of alcohol use: None Drug Abuse: None Lives with: Family Family History: Arthritis, CAD, DM, Hypertension, Malignancy, Other - Peripheral vascular disease Patient has suicidal ideation: No Patient has homicidal ideation: No - Past Medical History Cardiac Medical History: Reports: Hx Hypertension, Hx Heart Murmur - aortic valve (replaced now) Denies: Hx Coronary Artery Disease, Hx Hypercholesterolemia Pulmonary Medical History: Denies: Hx Asthma, Hx COPD Neurological Medical History: Denies: Hx Seizures Endocrine Medical History: Denies: Hx Diabetes Mellitus Type 1, Hx Diabetes Mellitus Type 2, Hx Hyperthyroidism, Hx Hypothyroidism Renal/ Medical History: Reports: Hx Benign Prostatic Hyperplasia GI Medical History: Denies: Hx Cirrhosis, Hx Crohn's Disease, Hx Gastroesophageal Reflux Disease, Hx Hepatitis, Hx Ulcerative Colitis Musculoskeletal Medical History: Reports Hx Arthritis - Rheumatoid arthritis, Reports Hx Gout Skin Medical History: Denies Hx Eczema, Denies Hx Psoriasis Psychiatric Medical History: Reports: Hx Depression Infectious Medical History: Denies: Hx Hepatitis Past Surgical History: Reports: Hx Cardiac Surgery - AORTIC VALVE REPLACED 05/30/19, Hx Orthopedic Surgery - Neck surgery - Immunizations Hx Diphtheria, Pertussis, Tetanus Vaccination: Yes Review of Systems - Review of Systems Constitutional: No symptoms reported EENT: No symptoms reported Cardiovascular: See HPI, Syncope. denies: Chest pain Respiratory: No symptoms reported Gastrointestinal: No symptoms reported Genitourinary: No symptoms reported Male Genitourinary: No symptoms reported Musculoskeletal: No symptoms reported Skin: No symptoms reported Hematologic/Lymphatic: No symptoms reported Neurological/Psychological: No symptoms reported -: Yes All other systems reviewed and negative Physical Exam - Vital signs Vitals: Resp Pulse Ox 15 98 07/08/19 12:06 07/08/19 12:06 - General General appearance: Appears well, Alert In distress: None - HEENT Head: Normocephalic, Atraumatic Eyes: Normal Pupils: PERRL - Respiratory Respiratory status: No respiratory distress Chest status: Nontender Breath sounds: Normal Chest palpation: Normal - Cardiovascular Rhythm: Regular Heart sounds: Normal auscultation Murmur: No - Abdominal Inspection: Normal Distension: No distension Bowel sounds: Normal Tenderness: Nontender Organomegaly: No organomegaly - Extremities General upper extremity: Normal inspection, Nontender. No: Edema General lower extremity: Normal inspection, Nontender. No: Edema - Neurological Neuro grossly intact: Yes Cognition: Normal Orientation: AAOx4 Wilbur Coma Scale Eye Opening: Spontaneous Wilbur Coma Scale Verbal: Oriented Hobson Coma Scale Motor: Obeys Commands Wilbur Coma Scale Total: 15 Speech: Normal Cranial nerves: Normal. No: Facial palsy, Sensory deficit, Tongue deviation Cerebellar coordination: Normal, Heel-maria, Finger-nose rhombey Motor strength normal: LUE, RUE, LLE, RLE Additional motor exam normals: Equal tool room attendant, Pronator drift Sensory: Normal - Psychological Associated symptoms: Normal affect, Normal mood - Skin Skin Temperature: Warm Skin Moisture: Dry Skin Color: Normal Course - Re-evaluation Re-evalutation: 07/08/19 13:44 Patient has recurrent episodes of vasovagal syncopal episodes. Patient states that he has been worked up at [facility] for this problem as well and has had 3 episodes since April 2019. Patient knows that when he has symptoms, and on that he is to lie flat until he recovers. Today he was out shopping felt lightheaded and dizzy had a near syncopal spell without passing out. EMS was called and patient was brought to the hospital patient states that if his labs are normal and and he is in good cardiovascular state that he really does not want any further work-up done. His is present witnessing the same conversation and both ready to leave at this time. - Vital Signs Vital signs: Temp Pulse Resp BP Pulse Ox 97.6 F 60 15 143/72 H 100 07/08/19 12:23 07/08/19 13:39 07/08/19 13:35 07/08/19 13:39 07/08/19 13:35 07/08/19 13:43 Patient had orthostatic blood pressure and pulse check showing heart rate went from 60-68 upon standing and systolic blood pressure went from 1 43-1 30. Patient was asymptomatic. - Laboratory Result Diagrams: 07/08/19 11:41 07/08/19 11:41 Laboratory results interpreted by me: 07/08/19 07/08/19 11:41 11:41 RBC 3.10 L Hgb 10.1 L Hct 30.8 L MCV 99 H RDW 15.8 H Plt Count 97 L Eos % (Auto) 21.6 H Absolute Eos (auto) 1.2 H Creatinine 1.51 H Est GFR ( Amer) 54 L Est GFR (MDRD) Non-Af 45 L Glucose 125 H AST 79 H Alkaline Phosphatase 230 H Total Protein 9.0 H 07/08/19 13:43 Lab results insignificant for any acute process. Patient hemoglobin 10.1 creatinine 1.5 patient commonly has an elevated creatinine around 1.4. - Diagnostic Test Radiology results interpreted by me: 07/08/19 time 1215 Twelve-lead EKG done 07/08/2019, normal sinus rhythm rate of 63 right bundle branch block no other acute process. Discharge - Discharge Clinical Impression: Vasovagal near syncope Condition: Stable Disposition: HOME, SELF-CARE Additional Instructions: Vasovagal Symptoms Your symptoms seem to be due to a fall in blood pressure, caused by the interaction of your nervous system with your circulatory system. This can result in abnormally slow pulse rate, faintness, abnormal sensations, low blood pressure, difficulty with vision, or fainting (syncope). Vasovagal symptoms may be brought on by emotional distress, pain, dehydration, bleeding, or medication effects. Often, no cause can be identified. Your exam has revealed no signs of a serious problem. Usually, no further tests are required. However, if further workup has been recommended it's important that you follow up as instructed. Should you feel lightheaded or "about to faint," you should sit or lie down as quickly as possible. The episode will usually pass. Recurring symptoms will require further evaluation to determine the cause. Call the physician if you develop severe prolonged dizziness, headache, chest pain, shortness of breath, or other new symptoms. Referrals: LENA MERINO MD [Primary Care Provider] - Follow up as needed I personally performed the services described in the documentation, reviewed and edited the documentation which was dictated to the scribe in my presence, and it accurately records my words and actions.
== END 2019-07-08 13:59 | disposition home or self-care (01) ==
LOC: ER 11:59
DX: R55 Syncope and collapse (principal); I10 Essential (primary) hypertension; Z95.2 Presence of prosthetic heart valve
CPT/HCPCS: 36415; 80053; 85025; 85610; 93005; 93010; 99284